=== PATIENT | male | born 1965 | race Caucasian/White ===

== ENCOUNTER 2018-04-09 00:49 | Inpatient (IN) | payer OTHER ==
[~2018-04-09] VITALS: Ht 188 cm; Wt 94.8 kg
[~2018-04-09 00:49] MED LIST: ALPR1TAB6 PO; BETA15CR TP; CYCL10TA2 PO; DIVA500T4 PO; FLUC100T7 PO; GABA-585 PO; GABA-586 PO; HYDR-2766 PO; HYDR-963 PO; LEVE500T56 PO; NITR4.1S2 TL; OXYC80TA16 PO; PHEN100C PO; RANI300C PO; TAMS0.4C97 PO; WARF-31 PO; WARF6TAB49 PO
[2018-04-09] MEDS ORDERED: IPRATRPIUM/ALBUTEROL 0.5/2.5MG 3 ML NEBU. NEB ONE ×2 (02:00)
[2018-04-09 02:31] LABS: BASO % 0 % (0-3); EOS # 0.1 x10^3/uL (0.0-0.7); EOS % 2 % (0-3); HEMOGLOBIN 14.2 g/dL (13.0-17.5); LYMPH # 1.1 x10^3/uL (1.0-4.8); LYMPH % 20 % (24-48); MEAN CORPUSCULAR HEMOGLOBIN 33 pg (25-35); MEAN CORPUSCULAR HGB CONC 35 g/dL (31-37); MEAN CORPUSCULAR VOLUME 97 fL (79-100); MONO # 0.7 x10^3/uL (0.0-1.1); MONO % 13 % (0-9); NEUT # 3.5 x10^3uL (1.8-7.7); NEUT % 65 % (31-73); PLATELET COUNT 206 x10^3/uL (140-400); RED BLOOD COUNT 4.25 x10^6/uL (4.30-5.70); RED CELL DISTRIBUTION WIDTH 15.2 % (11.5-14.5); WHITE BLOOD COUNT 5.4 x10^3/uL (4.0-11.0)
[2018-04-09 02:56] LABS: CALCIUM 9.6 mg/dL (8.5-10.1); GFR 78.8; POTASSIUM 3.5 mmol/L (3.5-5.1)
[2018-04-09 03:01] LABS: ALBUMIN 3.5 g/dL (3.4-5.0); ALBUMIN/GLOBULIN RATIO 0.7 (1.0-1.7); TOTAL BILIRUBIN 0.5 mg/dL (0.2-1.0); TOTAL PROTEIN 8.4 g/dL (6.4-8.2)
--- NOTE | 2018-04-09 03:38 | PHYS DOC ---
Past Medical History Past Medical History: COPD, Seizure, Stroke Additional Past Medical Histor: paralyzed left side, brain mass, hernia Past Surgical History: Appendectomy, Coronary Bypass Surgery Additional Past Surgical Histo: LT BKA Alcohol Use: None Drug Use: Marijuana, Methamphetamine Adult General Chief Complaint Chief Complaint: ALTERED MENTAL STATUS HPI HPI Patient is a 53 year old retirement patient with history of COPD, CVA with left sided paralysis who was found initially unresponsive with sonorous respirations at the side of his bed. Patient was difficulty alert but GCS of 12- 13 according to retirement staff. Patient was found to have packing methamphetamines in his bed according to retirement staff. EMS and police were were contacted. Patient was then transferred to the ED for further evaluation. GCS 15 upon ED arrival. Patient hypoxic, requiring 6 L of oxygen to maintain O2 sat duration greater than 90%. Patient does not normally wear oxygen at baseline. Goals present lower lung melendrez. Patient afebrile and not in obvious respiratory distress. History is limited due to the patient's poor cooperation.[] Review of Systems Review of Systems Review symptoms as per history of present illness. All other review symptoms are negative. Current Medications Current Medications Current Medications Medications (Trade) Dose Ordered Sig/Lyudmila Start Time Stop Time Status Last Admin Dose Admin Albuterol/ Ipratropium (Duoneb) 3 ml 1X ONCE 04/09/18 02:00 04/09/18 02:01 DC Furosemide (Lasix) 40 mg 1X ONCE 04/09/18 04:00 04/09/18 04:01 DC 04/09/18 04:07 40 MG Info (CONTRAST GIVEN -- Rx MONITORING) 1 each PRN DAILY PRN 04/09/18 04:15 04/11/18 04:14 Iohexol (Omnipaque 300 Mg/ml) 75 ml 1X ONCE 04/09/18 04:15 04/09/18 04:16 DC 04/09/18 04:08 75 ML Levofloxacin/ Dextrose 150 ml @ 100 mls/hr 1X ONCE 04/09/18 06:00 04/09/18 07:29 Methylprednisolone Sodium Succinate (SOLU-Medrol 125MG VIAL) 125 mg 1X ONCE 04/09/18 04:00 04/09/18 04:01 DC 04/09/18 04:07 125 MG Ondansetron HCl (Zofran) 4 mg PRN Q8HRS PRN 04/09/18 05:45 04/10/18 05:44 Sodium Chloride 1,000 ml @ 1,000 mls/hr 1X ONCE 04/09/18 06:00 04/09/18 06:59 04/09/18 05:44 1,000 MLS/HR Allergies Allergies Allergies Coded Allergies Type Severity Reaction Last Updated Verified chlorpromazine Allergy Intermediate 12/21/13 No Physical Exam Physical Exam Constitutional: Appears older than stated age. [] HENT: Normocephalic, atraumatic, bilateral external ears normal, oropharynx moist, no oral exudates, nose normal. [] Eyes: PERRLA, EOMI, conjunctiva normal, no discharge. [] Neck: Normal range of motion, no tenderness, supple, no stridor. [] Cardiovascular:Heart rate regular rhythm, no murmur [] Lungs & Thorax: Crease work of breathing, Bilateral breath sounds clear to auscultation [] Abdomen: Bowel sounds normal, soft, no tenderness, no valentin. [] Skin: Warm, dry, no erythema, no rash. [] Back: No tenderness, no CVA tenderness. [] Extremities: No tenderness, no edema. [] Neurologic: Alert and oriented X 3,. Left-sided hemiparesis [] Psychologic: Affe, anxious.al. [] Current Patient Data Vital Signs Vital Signs Date Time Temp Pulse Resp B/P (MAP) Pulse Ox O2 Delivery O2 Flow Rate FiO2 04/09/18 04:59 94 BiPAP/CPAP 04/09/18 04:12 82 18 04/09/18 01:40 4.0 04/09/18 01:09 98.6 121/71 (88) 98.6 Lab Values Laboratory Tests Test 04/09/18 02:00 04/09/18 03:26 White Blood Count 5.4 x10^3/uL (4.0-11.0) Red Blood Count 4.25 x10^6/uL (4.30-5.70) L Hemoglobin 14.2 g/dL (13.0-17.5) Hematocrit 41.0 % (39.0-53.0) Mean Corpuscular Volume 97 fL (79-100) Mean Corpuscular Hemoglobin 33 pg (25-35) Mean Corpuscular Hemoglobin Concent 35 g/dL (31-37) Red Cell Distribution Width 15.2 % (11.5-14.5) H Platelet Count 206 x10^3/uL (140-400) Neutrophils (%) (Auto) 65 % (31-73) Lymphocytes (%) (Auto) 20 % (24-48) L Monocytes (%) (Auto) 13 % (0-9) H Eosinophils (%) (Auto) 2 % (0-3) Basophils (%) (Auto) 0 % (0-3) Neutrophils # (Auto) 3.5 x10^3uL (1.8-7.7) Lymphocytes # (Auto) 1.1 x10^3/uL (1.0-4.8) Monocytes # (Auto) 0.7 x10^3/uL (0.0-1.1) Eosinophils # (Auto) 0.1 x10^3/uL (0.0-0.7) Basophils # (Auto) 0.0 x10^3/uL (0.0-0.2) Sodium Level 142 mmol/L (136-145) Potassium Level 3.5 mmol/L (3.5-5.1) Chloride Level 102 mmol/L (98-107) Carbon Dioxide Level 26 mmol/L (21-32) Anion Gap 14 (6-14) Blood Urea Nitrogen 26 mg/dL (8-26) Creatinine 1.0 mg/dL (0.7-1.3) Estimated GFR (Cockcroft-Gault) 78.8 BUN/Creatinine Ratio 26 (6-20) H Glucose Level 107 mg/dL (70-99) H Lactic Acid Level 1.4 mmol/L (0.4-2.0) Calcium Level 9.6 mg/dL (8.5-10.1) Total Bilirubin 0.5 mg/dL (0.2-1.0) Aspartate Amino Transferase (AST) 37 U/L (15-37) Alanine Aminotransferase (ALT) 24 U/L (16-63) Alkaline Phosphatase 110 U/L (46-116) Troponin I Quantitative 0.787 ng/mL (0.000-0.055) IX-Hug-C-Type Natriuretic Peptide 858 pg/mL (0-124) H Total Protein 8.4 g/dL (6.4-8.2) H Albumin 3.5 g/dL (3.4-5.0) Albumin/Globulin Ratio 0.7 (1.0-1.7) L O2 Saturation 91 % (92-99) L Arterial Blood pH 7.40 (7.35-7.45) Arterial Blood pCO2 at Patient Temp 47 mmHg (35-46) H Arterial Blood pO2 at Patient Temp 63 mmHg (75-108) L Arterial Blood HCO3 29 mmol/L (21-28) H Arterial Blood Base Excess 3 mmol/L (-3-3) FiO2 40 Laboratory Tests 04/09/18 02:00 Laboratory Tests 04/09/18 02:00 EKG EKG [EKG: Sinus rhythm, nonspecific ST-T wave changes, QTC 440.] Radiology/Procedures Radiology/Procedures [CT head: CT a chest:] Course & Med Decision Making Course & Med Decision Making Pertinent Labs and Imaging studies reviewed. (See chart for details) [Acute respiratory failure with hypoxia likely due to congestive heart failure and OPD. Steroids, Lasix, DuoNeb given. Will admit to the hospital service for further evaluation and treatment.] Dragon Disclaimer Dragon Disclaimer This electronic medical record was generated, in whole or in part, using a voice recognition dictation system. Departure Departure Referrals: KAYLYNN BARTLETT (PCP) SADIQ ENCARNACION DO Apr 09, 2018 03:38
[2018-04-09] MEDS ORDERED: FUROSEMIDE 40 MG/4 ML VIAL. IVP ONE (04:00)
[2018-04-09] MEDS ORDERED: methylPREDNISolone SOD SUCC PF 125 MG/2 ML VIAL. IV ONE (04:00)
[2018-04-09] MEDS ORDERED: IOHEXOL 300 MG/ML 100ML VIAL. IV ONE (04:15)
[2018-04-09] MEDS ORDERED: CONTRAST GIVEN. MC PRN (04:15)
--- NOTE | 2018-04-09 04:30 | RAD ---
INDICATION: ams COMPARISON: November 2014 TECHNIQUE: Axial CT images obtained through the head without contrast. One or more of the following individualized dose reduction techniques were utilized for this examination: 1. Automated exposure control; 2. Adjustment of the mA and/or kV according to patient size; 3. Use of iterative reconstruction technique. FINDINGS: Large region of encephalomalacia is seen within the right cerebral hemisphere with associated volume loss. There is surrounding regions of low attenuation throughout the white matter. Ex vacuo dilatation of the right lateral ventricle. No definite new region of hemorrhage. Diffuse volume loss. Opacification of partially visualized maxillary sinuses. Nasal septal deviation to left. IMPRESSION: 1. No definite acute intracranial hemorrhage. 2. Large region of encephalomalacia is again seen within the right cerebral hemisphere and could be from prior right MCA infarct. Given the extensive chronic disease could be difficult to exclude a superimposed acute etiology and if there is high clinical concern for acute ischemia MRI could better evaluate. 3. Opacification of partially visualized maxillary sinuses. Could be from congestion or sinusitis. Electronically signed by: Jigar Pratt MD (04/09/2018 4:26 AM) [id number]
[2018-04-09 05:11] LABS: BASE EXCESS ABG 3 mmol/L (-3-3); HCO3 ABG 29 mmol/L (21-28); PCO2 ABG 47 mmHg (35-46); PO2 ABG 63 mmHg (75-108); SAT O2 ABG 91 % (92-99)
[2018-04-09 05:12] LABS: FIO2 ABG 40
--- NOTE | 2018-04-09 05:22 | RAD ---
INDICATION: ams; eval for pe; Omni 300, 75ml COMPARISON: Chest x-ray from November 2014 TECHNIQUE: Axial CT images obtained through the chest. Intravenous contrast utilized. Angiogram 3D images processed per protocol. One or more of the following individualized dose reduction techniques were utilized for this examination: 1. Automated exposure control; 2. Adjustment of the mA and/or kV according to patient size; 3. Use of iterative reconstruction technique. FINDINGS: Cystic changes to the bilateral lungs which can be seen with emphysematous changes. Severe patient motion. Large bulla at right lung base. Patchy opacities within the bilateral lungs dependently. Lobulated appearance of partially visualized kidneys. There is almost no contrast within the thoracic aorta therefore the lumen is not evaluated on this exam. Artificial aortic valve. Enlarged precarinal lymph node, 14 mm short axis. Degenerative changes throughout the spine. Scoliotic curvature. IMPRESSION: No embolus in the main, right main or left main pulmonary artery. The majority of the pulmonary arteries are nondiagnostic secondary to severe patient motion. Severe emphysematous changes. Patchy opacities are seen within the lungs. Could be infectious or inflammatory in nature although a component of aspiration is not excluded. Would also obtain a follow-up to ensure this resolves to exclude neoplastic causes. The patient has enlarged mediastinal lymph nodes can be followed at that time as well. Lobulated appearance of the kidneys. May be helpful to obtain a nonemergent follow-up to evaluate for renal lesions given this partially otherwise finding. Electronically signed by: Jigar Pratt MD (04/09/2018 5:18 AM) [id number]
[2018-04-09] MEDS ORDERED: ONDANSETRON PF 4 MG/2 ML VIAL. IV PRN ×2 (05:45→09:15)
[2018-04-09] MEDS ORDERED: IV NORMAL SALINE 1000ML BAG 1,000 ML IV ONE (06:00)
[2018-04-09 06:02] LABS: BARBITURATES NEG (NEG); BENZODIAZEPINES NEG (NEG); CANNABINOIDS NEG (NEG); COCAINE NEG (NEG); METHADONE NEG (NEG); OPIATES NEG (NEG); PHENCYCLIDINE NEG (NEG)
[2018-04-09 06:03] LABS: AMPHETAMINE/METHAMPHETAMINE POS (NEG)
--- NOTE | 2018-04-09 06:03 | EKG ---
[facility] [address] [place] [address] Test Date: 2018-04-09 Test Time: 01:38:11 Pat Name: ANALI NEWELL Department: Room: 110 1 Gender: M Bread Distributor: : [id number] Requested By: SADIQ ENCARNACION Order Number: [id number] Reading MD: Caio Barnes MD Measurements Intervals [place] Rate: 90 P: 42 SD: 200 QRS: 10 QRSD: 108 T: 157 QT: 356 QTc: 440 Interpretive Statements SINUS RHYTHM ST & T ABNORMALITY, CONSIDER ANTERIOR ISCHEMIA OR LEFT VENTRICULAR STRAIN Electronically Signed On 04-09-2018 17:42:58 CDT by Caio Barnes MD
[2018-04-09 06:45] VITALS: BP 123/71
[2018-04-09] MEDS ORDERED: WARF4TAB68 PO (07:20)
[2018-04-09] MEDS ORDERED: QUET50TA5 PO (07:24)
[2018-04-09] MEDS ORDERED: AMIT100T PO (07:24)
[2018-04-09] MEDS ORDERED: LACT20SO PO (07:24)
[2018-04-09] MEDS ORDERED: DIVA500T17 PO (07:24)
[2018-04-09] MEDS ORDERED: FLUT12AE IH (07:24)
[2018-04-09] MEDS ORDERED: PHEN100C PO ×2 (07:25)
[2018-04-09] MEDS ORDERED: ACET325T9 PO (07:32)
[2018-04-09] MEDS ORDERED: HYDR-971 PO (07:32)
[2018-04-09] MEDS ORDERED: CLOT15CR3 TP (07:32)
[2018-04-09] MEDS ORDERED: HYDR453.3 TP (07:32)
[2018-04-09] MEDS ORDERED: GUAI600T47 PO (07:32)
[2018-04-09] MEDS ORDERED: ONDA4TAB7 PO (07:32)
[2018-04-09] MEDS ORDERED: PROAIR HFA8.5 GM INH (07:32)
--- NOTE | 2018-04-09 07:56 | RAD ---
Left shoulder, 3 views, 04/09/2018: HISTORY: Trauma The patient positioning is suboptimal. No fracture or dislocation is identified. IMPRESSION: No acute bony abnormality is detected. Electronically signed by: Kumar Whitmore MD (04/09/2018 7:52 AM) [facility]
--- NOTE | 2018-04-09 08:04 | RAD ---
Single view of the chest. 04/09/2018 2:11 AM Indication: cough, ams Comparison: CTA chest, same-day Findings: No pneumothorax or pleural effusion severe diffuse emphysematous changes are noted. Prior median sternotomy noted. Heart size is top normal. No acute osseous changes are seen. IMPRESSION: 1. Severe emphysematous changes 2. Mild bibasilar atelectasis Electronically signed by: Dennis Mercado MD (04/09/2018 8:00 AM) [id number]
[2018-04-09 08:45] VITALS: BP 108/77
[2018-04-09] MEDS ORDERED: MORPHINE SULFATE 2 MG/ML VIAL. IV PRN (09:15)
[2018-04-09] MEDS ORDERED: traMADol 50 MG TABLET PO PRN (09:15)
[2018-04-09] MEDS ORDERED: ACETAMINOPHEN 325 MG TABLET. PO PRN (09:15)
[2018-04-09] MEDS ORDERED: DOCUSATE SODIUM 100 MG CAPSULE. PO PRN (09:15)
[2018-04-09] MEDS ORDERED: ALBUTEROL SULFATE 2.5 MG/3 ML NEBU. NEB PRN (09:15)
--- NOTE | 2018-04-09 09:35 | PDOC2 ---
ASHLY OBREGON TIME STUDY ANALYST 04/09/18 0935: CARDIAC CONSULT DATE OF CONSULT Date of Consult DATE: 04/09/18 TIME: 09:24 REASON FOR CONSULT Reason for Consult: CHF exac REFERRING PHYSICIAN Referring Physician: Manjit SOURCE Source: Chart review (patient provided no information for this consult; no family present) HISTORY OF PRESENT ILLNESS HISTORY OF PRESENT ILLNESS 53 year old [place] resident found to somnolent with snoring respirations by staff. Was also found to have methamphetamines in his room. Police contacted and then patient transported to ER for evaluation. Required O2 during transport due to hypoxia. Currently on bi-pap and declining to answer questions. Initial troponin level was 0.787 and a NT-proBNP of 858. UDS + meth. CT of chest demonstrates severe emphysema. Reason for Visit: NSTEMI PAST MEDICAL HISTORY Cardiovascular: Other (? Marfan syndrome & previous valvular surgery) Pulmonary: COPD (bullous emphysema) CENTRAL NERVOUS SYSTEM: CVA (left hemiparesis), Seizure, Other (brain mass) PAST SURGICAL HISTORY Past Surgical History: Appendectomy, CABG, Hernia Repair, Other (left BKA) FAMILY HISTORY Family History: Family History Unknown SOCIAL HISTORY Drugs: Marijuana, Crystal meth Lives: [facility] CURRENT MEDICATIONS CURRENT MEDICATIONS Current Medications Medications (Trade) Dose Ordered Sig/Lyudmila Route PRN Reason Start Time Stop Time Status Last Admin Dose Admin Albuterol/ Ipratropium (Duoneb) 3 ml 1X ONCE NEB 04/09/18 02:00 04/09/18 02:01 DC 04/09/18 01:43 Furosemide (Lasix) 40 mg 1X ONCE IVP 04/09/18 04:00 04/09/18 04:01 DC 04/09/18 04:07 Methylprednisolone Sodium Succinate (SOLU-Medrol 125MG VIAL) 125 mg 1X ONCE IV 04/09/18 04:00 04/09/18 04:01 DC 04/09/18 04:07 Iohexol (Omnipaque 300 Mg/ml) 75 ml 1X ONCE IV 04/09/18 04:15 04/09/18 04:16 DC 04/09/18 04:08 Sodium Chloride 1,000 ml @ 1,000 mls/hr 1X ONCE IV 04/09/18 06:00 04/09/18 06:59 DC 04/09/18 05:44 Levofloxacin/ Dextrose 150 ml @ 100 mls/hr 1X ONCE IV 04/09/18 06:00 04/09/18 07:29 DC 04/09/18 05:50 ALLERGIES ALLERGIES: Coded Allergies: chlorpromazine (Unverified Allergy, Intermediate, 12/21/13) ROS Review of System unobtainable as patient not cooperative PHYSICAL EXAM General: No acute distress, Other (not cooperative; declines to answer) HEENT: Atraumatic Lungs: Clear to auscultation Heart: Normal S1, Normal S2, Other (mechanical valvular click) Abdomen: Soft Extremities: No edema Skin: No rashes Neuro: Other (can not assess) Psych/Mental Status: Other (??) MUSCULOSKELETAL: Other (left BKA) VITALS VITALS Vital Signs Date Time Temp Pulse Resp B/P (MAP) Pulse Ox O2 Delivery O2 Flow Rate FiO2 04/09/18 08:45 97.7 77 20 108/77 (87) 97 BiPAP/CPAP 97.7 04/09/18 01:40 4.0 LABS Lab: Laboratory Tests Test 04/09/18 02:00 04/09/18 03:26 04/09/18 05:37 04/09/18 08:25 White Blood Count 5.4 x10^3/uL (4.0-11.0) Red Blood Count 4.25 x10^6/uL (4.30-5.70) Hemoglobin 14.2 g/dL (13.0-17.5) Hematocrit 41.0 % (39.0-53.0) Mean Corpuscular Volume 97 fL (79-100) Mean Corpuscular Hemoglobin 33 pg (25-35) Mean Corpuscular Hemoglobin Concent 35 g/dL (31-37) Red Cell Distribution Width 15.2 % (11.5-14.5) Platelet Count 206 x10^3/uL (140-400) Neutrophils (%) (Auto) 65 % (31-73) Lymphocytes (%) (Auto) 20 % (24-48) Monocytes (%) (Auto) 13 % (0-9) Eosinophils (%) (Auto) 2 % (0-3) Basophils (%) (Auto) 0 % (0-3) Neutrophils # (Auto) 3.5 x10^3uL (1.8-7.7) Lymphocytes # (Auto) 1.1 x10^3/uL (1.0-4.8) Monocytes # (Auto) 0.7 x10^3/uL (0.0-1.1) Eosinophils # (Auto) 0.1 x10^3/uL (0.0-0.7) Basophils # (Auto) 0.0 x10^3/uL (0.0-0.2) Sodium Level 142 mmol/L (136-145) Potassium Level 3.5 mmol/L (3.5-5.1) Chloride Level 102 mmol/L (98-107) Carbon Dioxide Level 26 mmol/L (21-32) Anion Gap 14 (6-14) Blood Urea Nitrogen 26 mg/dL (8-26) Creatinine 1.0 mg/dL (0.7-1.3) Estimated GFR (Cockcroft-Gault) 78.8 BUN/Creatinine Ratio 26 (6-20) Glucose Level 107 mg/dL (70-99) Lactic Acid Level 1.4 mmol/L (0.4-2.0) Calcium Level 9.6 mg/dL (8.5-10.1) Total Bilirubin 0.5 mg/dL (0.2-1.0) Aspartate Amino Transf (AST/SGOT) 37 U/L (15-37) Alanine Aminotransferase (ALT/SGPT) 24 U/L (16-63) Alkaline Phosphatase 110 U/L (46-116) Troponin I Quantitative 0.787 ng/mL (0.000-0.055) 0.494 ng/mL (0.000-0.055) CU-Dsd-N-Type Natriuretic Peptide 858 pg/mL (0-124) Total Protein 8.4 g/dL (6.4-8.2) Albumin 3.5 g/dL (3.4-5.0) Albumin/Globulin Ratio 0.7 (1.0-1.7) O2 Saturation 91 % (92-99) Arterial Blood pH 7.40 (7.35-7.45) Arterial Blood pCO2 at Patient Temp 47 mmHg (35-46) Arterial Blood pO2 at Patient Temp 63 mmHg (75-108) Arterial Blood HCO3 29 mmol/L (21-28) Arterial Blood Base Excess 3 mmol/L (-3-3) FiO2 40 Urine Opiates Screen Neg (NEG) Urine Methadone Screen Neg (NEG) Urine Barbiturates Neg (NEG) Urine Phencyclidine Screen Neg (NEG) Urine Amphetamine/Methamphetamine Pos (NEG) Urine Benzodiazepines Screen Neg (NEG) Urine Cocaine Screen Neg (NEG) Urine Cannabinoids Screen Neg (NEG) Urine Ethyl Alcohol Neg (NEG) IMAGES IMAGES 04/09/2018: CT chest: No embolus in the main, right main or left main pulmonary artery. The majority of the pulmonary arteries are nondiagnostic secondary to severe patient motion. Severe emphysematous changes. Patchy opacities are seen within the lungs. Could be infectious or inflammatory in nature although a component of aspiration is not excluded. Would also obtain a follow-up to ensure this resolves to exclude neoplastic causes. The patient has enlarged mediastinal lymph nodes can be followed at that time as well. Lobulated appearance of the kidneys. May be helpful to obtain a nonemergent follow-up to evaluate for renal lesions given this partially otherwise finding. 04/09/2018: CXR: Findings: No pneumothorax or pleural effusion severe diffuse emphysematous changes are noted. Prior median sternotomy noted. Heart size is top normal. No acute osseous changes are seen. IMPRESSION: 1. Severe emphysematous changes 2. Mild bibasilar atelectasis EKG EKG SR; non-specific ST-T changes ASSESSMENT/PLAN ASSESSMENT/PLAN 1. NSTEMI --demand mediated secondary to meth --TTE to evaluate LVEF and assess for WMA; hvac technician subsequently reported he declined echo --current BP does not support BB or ACEI 2. ? history of Marfan's --has mechanical valvular click --? ascending aortic repair with AVR; no details known --on warfarin with subtherapeutic INR 3. CHF --CXR with CHF findings/pleural effusions --NT-proBNP not consistent with CHF when age adjusted --clinical findings do not support CHF 4. acute respiratory failure --on bi-pap --per PULM 5. COPD with severe emphysema 6. mediastinal adenopathy 7. substance abuse PATRICA HA MD 04/09/18 7694: CARDIAC CONSULT ASSESSMENT/PLAN ASSESSMENT/PLAN Pt. seen and examined. Agree with above GRINDER MACHINE SETTER note. complicated patient with multiple issues. no clear STEMI. EKG suggestive of ischemia. Given multiple comorbidities and clear source of NSTEMI, will defer further testing. If after stabilization of resp status he continues to have issues, could then start with echo if patient amenable. Supportive care. Thanks. ASHLY OBREGON APRN Apr 09, 2018 09:35 PATRICA HA MD Apr 09, 2018 17:44
[2018-04-09 09:42] LABS: PROTHROMBIN TIME PATIENT 16.3 SEC (11.7-14.0)
[2018-04-09 10:24] LABS: CHOLESTEROL/HDL RATIO 4.9
--- NOTE | 2018-04-09 11:04 | CONS ---
DATE OF CONSULTATION: PULMONARY CONSULTATION ATTENDING PHYSICIAN: Catia Nolen M.D. REASON FOR CONSULTATION: Hypoxic respiratory failure. HISTORY OF PRESENT ILLNESS: The patient is a 53-year-old male who has history of COPD, history of seizures, stroke and paralysis on the left side. He was brought into the [facility] after he was initially unresponsive with sonorous respirations. His [place] Coma scaling was about 12-13 according to [facility] staff and ER report. The patient was found to have methamphetamines in his urine drug screen. He was evaluated in the Emergency Room and his [place] coma scale was 15 upon arrival. He was hypoxic, requiring 6 liters of oxygen to keep saturation above 90%. The patient does not normally wear oxygen. He underwent imaging study and CTA chest was performed, which was reviewed by me. There were no obvious central pulmonary emboli; however, there was motion artifact. There were some patchy opacities within the lungs, likely inflammatory. There were enlarged mediastinal lymph nodes, with the largest being precarinal at 14 mm. As a result, I have been asked to see him for further evaluation. He was placed on BiPAP. He does respond to commands. He nods yes and no to questions. PAST MEDICAL HISTORY: Significant for history of COPD, seizure, stroke, history of paralysis on the left side, brain mass and hernia. PAST SURGICAL HISTORY: Appendectomy, coronary bypass and left foot surgery. ALLERGIES: CHLORPROMAZINE. MEDICATIONS: Current medications were reviewed as listed in the MRAD, including DuoNebs and Levaquin. REVIEW OF SYSTEMS: System review unable to obtain from the patient. SOCIAL HISTORY: History of tobacco use and substance abuse. PHYSICAL EXAMINATION: VITAL SIGNS: Reviewed. Pulse ox 97% on BiPAP. GENERAL: He responds yes and no to questions. HEENT: Sclerae nonicteric. NECK: Supple. LUNGS: With diminished breath sounds. CARDIOVASCULAR EXAMINATION: With a regular rate. ABDOMEN: Soft and nontender. EXTREMITIES: With left foot amputation. LABORATORY DATA: Labs were reviewed. Urine drug screen positive for amphetamine and meth. BUN and creatinine 26 and 1.0. Lactic acid 1.4. Albumin is 3.5. INR 1.4. White cell count 5.4, hemoglobin 14.2 and platelets are 206,000. IMPRESSION: 1. Acute hypoxic respiratory failure secondary to toxic encephalopathy. Cannot exclude the possibility of aspiration pneumonia. 2. Abnormal CT chest with bilateral mild patchy opacities; could be related to atelectasis versus pneumonia. 3. No evidence of central pulmonary embolism. 4. Methamphetamine overdose resulting in encephalopathy. RECOMMENDATIONS: 1. Continue with BiPAP until he is more awake. 2. He could be later switched to nasal cannula. 3. Substance counseling will be provided to the patient once he is more awake. 4. Continue empiric antibiotics. 5. Bronchodilators as scheduled. 6. He does not need steroids at present. 7. Discussed with RN. We will follow along with you. Total critical care time 30 minutes. AURA HERRERA MD DR: WHIT/kalani JOB#: [id number] / [id number]
[2018-04-09 11:10] VITALS: BP 105/73
[2018-04-09] MEDS ORDERED: PHENYTOIN SODIUM EXTENDED 100 MG CAPSULE PO SCH (12:00)
[2018-04-09] MEDS ORDERED: IPRATRPIUM/ALBUTEROL 0.5/2.5MG 3 ML NEBU. NEB SCH (12:00)
[2018-04-09] MEDS ORDERED: levETIRAcetam 500 MG TABLET PO SCH (12:00)
[2018-04-09] MEDS ORDERED: DIVALPROEX EXTENDED RELEASE 500 MG TAB.ER.24H. PO SCH (12:00)
--- NOTE | 2018-04-09 12:39 | PDOC1 ---
History and Physical Date of Admission Date of Admission 04/09/18 Identification/Chief Complaint Chief Complaint AMS Source Source: Chart review History of Present Illness History of Present Illness HPI Patient is a 53 year old shelter patient with history of COPD, CVA with left sided paralysis was sent from SNF for AMS, taking meth. pt seen in ICU with bipap, arousable, follow commands, but not really answer my questions. as per ICU nurse and ERP, pt was found initially unresponsive with sonorous respirations at the side of his bed. Patient was difficulty alert but GCS of 12- 13 according to shelter staff. Patient was found to have packing methamphetamines in his bed according to shelter staff. EMS and police were were contacted. ICU nurse said they told pt need to go to correction or hosp since taking meth and pt wanted hosp. as per ERP, GCS 15 upon ED arrival. Patient hypoxic, requiring 6 L of oxygen to maintain O2 sat duration greater than 90%. Patient does not normally wear oxygen at baseline. Pt was put on BIpap and sent to ICU. pt denies sob to me now. Past Medical History Cardiovascular: Other (? Marfan syndrome & previous valvular surgery) Pulmonary: COPD (bullous emphysema) CENTRAL NERVOUS SYSTEM: CVA (left hemiparesis), Seizure, Other (brain mass) Past Surgical History Past Surgical History: Appendectomy, CABG, Other (left BKA) Social History Smoke: No ALCOHOL: rare Drugs: Marijuana, Crystal meth Current Problem List Problem List Problems Medical Problems: (1) Acute respiratory failure with hypoxia Status: Acute Current Medications Current Medications Current Medications Medications (Trade) Dose Ordered Sig/Lyudmila Start Time Stop Time Status Last Admin Dose Admin Acetaminophen (Tylenol) 650 mg PRN Q6HRS PRN 04/09/18 09:15 Albuterol Sulfate (Ventolin Neb Soln) 2.5 mg PRN Q2HR PRN 04/09/18 09:15 Albuterol/ Ipratropium (Duoneb) 3 ml RTQID 04/09/18 12:00 Divalproex Sodium (Depakote Er) 500 mg BID 04/09/18 12:00 04/09/18 12:06 500 MG Docusate Sodium (Colace) 100 mg PRN DAILY PRN 04/09/18 09:15 Furosemide (Lasix) 40 mg 1X ONCE 04/09/18 04:00 04/09/18 04:01 DC 04/09/18 04:07 40 MG Gabapentin (Neurontin) 300 mg TID 04/09/18 14:00 Guaifenesin (Mucinex) 600 mg BID 04/09/18 10:00 04/09/18 11:59 600 MG Info (CONTRAST GIVEN -- Rx MONITORING) 1 each PRN DAILY PRN 04/09/18 04:15 04/11/18 04:14 Iohexol (Omnipaque 300 Mg/ml) 75 ml 1X ONCE 04/09/18 04:15 04/09/18 04:16 DC 04/09/18 04:08 75 ML Levetiracetam (Keppra) 500 mg BID 04/09/18 12:00 04/09/18 12:00 500 MG Levofloxacin/ Dextrose 100 ml @ 100 mls/hr Q24H 04/09/18 11:00 Methylprednisolone Sodium Succinate (SOLU-Medrol 125MG VIAL) 125 mg 1X ONCE 04/09/18 04:00 04/09/18 04:01 DC 04/09/18 04:07 125 MG Morphine Sulfate (Morphine Sulfate) 2 mg PRN Q2HR PRN 04/09/18 09:15 Ondansetron HCl (Zofran) 4 mg PRN Q6HRS PRN 04/09/18 09:15 Phenytoin Sodium (Dilantin) 200 mg DAILY08 04/09/18 12:00 04/09/18 11:59 200 MG Sodium Chloride 1,000 ml @ 1,000 mls/hr 1X ONCE 04/09/18 06:00 04/09/18 06:59 DC 04/09/18 05:44 1,000 MLS/HR Tramadol HCl (Ultram) 50 mg PRN Q6HRS PRN 04/09/18 09:15 Allergies Allergies Allergies Coded Allergies Type Severity Reaction Last Updated Verified chlorpromazine Allergy Intermediate 12/21/13 No ROS Review of System CONSTITUTIONAL: No fever or chills EYES: No recent changes SKIN: No rash or itching CARDIOVASCULAR: No chest pain, syncope, palpitations, or edema RESPIRATORY: No SOB or cough GASTROINTESTINAL: No nausea, vomiting or abdominal pain NEUROLOGICAL: No headaches or weakness ENDOCRINE: No cold or heat intolerance GENITOURINARY: No urgency or frequency of urination MUSCULOSKELETAL: No back pain or joint pain LYMPHATICS: No enlarged lymph nodes PSYCHIATRIC: No anxiety or depression Physical Exam Physical Exam GEN.: No apparent distress. Alert and oriented. HEENT: Head is normocephalic, atraumatic NECK: Supple. LUNGS: Clear to auscultation. HEART: RRR, S1, S2 present. Peripheral pulses intact ABDOMEN: Soft, nontender. Positive bowel sounds. EXTREMITIES: Without any cyanosis. NEUROLOGIC: arousable, follow commands, but not talking to me. left side hemiplegia. PSYCHIATRIC: Normal affect, normal mood. SKIN: No ulcerations Vitals Vitals Vital Signs Date Time Temp Pulse Resp B/P (MAP) Pulse Ox O2 Delivery O2 Flow Rate FiO2 04/09/18 11:10 72 16 105/73 (84) 92 Room Air 04/09/18 08:45 97.7 97.7 04/09/18 01:40 4.0 Labs Labs Laboratory Tests Test 04/09/18 02:00 04/09/18 03:26 04/09/18 05:37 04/09/18 08:25 White Blood Count 5.4 x10^3/uL (4.0-11.0) Red Blood Count 4.25 x10^6/uL (4.30-5.70) Hemoglobin 14.2 g/dL (13.0-17.5) Hematocrit 41.0 % (39.0-53.0) Mean Corpuscular Volume 97 fL (79-100) Mean Corpuscular Hemoglobin 33 pg (25-35) Mean Corpuscular Hemoglobin Concent 35 g/dL (31-37) Red Cell Distribution Width 15.2 % (11.5-14.5) Platelet Count 206 x10^3/uL (140-400) Neutrophils (%) (Auto) 65 % (31-73) Lymphocytes (%) (Auto) 20 % (24-48) Monocytes (%) (Auto) 13 % (0-9) Eosinophils (%) (Auto) 2 % (0-3) Basophils (%) (Auto) 0 % (0-3) Neutrophils # (Auto) 3.5 x10^3uL (1.8-7.7) Lymphocytes # (Auto) 1.1 x10^3/uL (1.0-4.8) Monocytes # (Auto) 0.7 x10^3/uL (0.0-1.1) Eosinophils # (Auto) 0.1 x10^3/uL (0.0-0.7) Basophils # (Auto) 0.0 x10^3/uL (0.0-0.2) Sodium Level 142 mmol/L (136-145) Potassium Level 3.5 mmol/L (3.5-5.1) Chloride Level 102 mmol/L (98-107) Carbon Dioxide Level 26 mmol/L (21-32) Anion Gap 14 (6-14) Blood Urea Nitrogen 26 mg/dL (8-26) Creatinine 1.0 mg/dL (0.7-1.3) Estimated GFR (Cockcroft-Gault) 78.8 BUN/Creatinine Ratio 26 (6-20) Glucose Level 107 mg/dL (70-99) Lactic Acid Level 1.4 mmol/L (0.4-2.0) Calcium Level 9.6 mg/dL (8.5-10.1) Total Bilirubin 0.5 mg/dL (0.2-1.0) Aspartate Amino Transf (AST/SGOT) 37 U/L (15-37) Alanine Aminotransferase (ALT/SGPT) 24 U/L (16-63) Alkaline Phosphatase 110 U/L (46-116) Troponin I Quantitative 0.787 ng/mL (0.000-0.055) 0.494 ng/mL (0.000-0.055) KK-Bgr-X-Type Natriuretic Peptide 858 pg/mL (0-124) Total Protein 8.4 g/dL (6.4-8.2) Albumin 3.5 g/dL (3.4-5.0) Albumin/Globulin Ratio 0.7 (1.0-1.7) Triglycerides Level 142 mg/dL (0-150) Cholesterol Level 176 mg/dL (0-200) LDL Cholesterol, Calculated 112 mg/dL (0-100) VLDL Cholesterol, Calculated 28 mg/dL (0-40) Non-HDL Cholesterol Calculated 140 mg/dL (0-129) HDL Cholesterol 36 mg/dL (40-60) Cholesterol/HDL Ratio 4.9 O2 Saturation 91 % (92-99) Arterial Blood pH 7.40 (7.35-7.45) Arterial Blood pCO2 at Patient Temp 47 mmHg (35-46) Arterial Blood pO2 at Patient Temp 63 mmHg (75-108) Arterial Blood HCO3 29 mmol/L (21-28) Arterial Blood Base Excess 3 mmol/L (-3-3) FiO2 40 Urine Opiates Screen Neg (NEG) Urine Methadone Screen Neg (NEG) Urine Barbiturates Neg (NEG) Urine Phencyclidine Screen Neg (NEG) Urine Amphetamine/Methamphetamine Pos (NEG) Urine Benzodiazepines Screen Neg (NEG) Urine Cocaine Screen Neg (NEG) Urine Cannabinoids Screen Neg (NEG) Urine Ethyl Alcohol Neg (NEG) Prothrombin Time 16.3 SEC (11.7-14.0) Prothromb Time International Ratio 1.4 (0.8-1.1) Test 04/09/18 11:40 Troponin I Quantitative 0.380 ng/mL (0.000-0.055) Laboratory Tests Test 04/09/18 02:00 04/09/18 03:26 04/09/18 05:37 04/09/18 08:25 White Blood Count 5.4 x10^3/uL (4.0-11.0) Red Blood Count 4.25 x10^6/uL (4.30-5.70) Hemoglobin 14.2 g/dL (13.0-17.5) Hematocrit 41.0 % (39.0-53.0) Mean Corpuscular Volume 97 fL (79-100) Mean Corpuscular Hemoglobin 33 pg (25-35) Mean Corpuscular Hemoglobin Concent 35 g/dL (31-37) Red Cell Distribution Width 15.2 % (11.5-14.5) Platelet Count 206 x10^3/uL (140-400) Neutrophils (%) (Auto) 65 % (31-73) Lymphocytes (%) (Auto) 20 % (24-48) Monocytes (%) (Auto) 13 % (0-9) Eosinophils (%) (Auto) 2 % (0-3) Basophils (%) (Auto) 0 % (0-3) Neutrophils # (Auto) 3.5 x10^3uL (1.8-7.7) Lymphocytes # (Auto) 1.1 x10^3/uL (1.0-4.8) Monocytes # (Auto) 0.7 x10^3/uL (0.0-1.1) Eosinophils # (Auto) 0.1 x10^3/uL (0.0-0.7) Basophils # (Auto) 0.0 x10^3/uL (0.0-0.2) Sodium Level 142 mmol/L (136-145) Potassium Level 3.5 mmol/L (3.5-5.1) Chloride Level 102 mmol/L (98-107) Carbon Dioxide Level 26 mmol/L (21-32) Anion Gap 14 (6-14) Blood Urea Nitrogen 26 mg/dL (8-26) Creatinine 1.0 mg/dL (0.7-1.3) Estimated GFR (Cockcroft-Gault) 78.8 BUN/Creatinine Ratio 26 (6-20) Glucose Level 107 mg/dL (70-99) Lactic Acid Level 1.4 mmol/L (0.4-2.0) Calcium Level 9.6 mg/dL (8.5-10.1) Total Bilirubin 0.5 mg/dL (0.2-1.0) Aspartate Amino Transf (AST/SGOT) 37 U/L (15-37) Alanine Aminotransferase (ALT/SGPT) 24 U/L (16-63) Alkaline Phosphatase 110 U/L (46-116) Troponin I Quantitative 0.787 ng/mL (0.000-0.055) 0.494 ng/mL (0.000-0.055) IA-Mtn-C-Type Natriuretic Peptide 858 pg/mL (0-124) Total Protein 8.4 g/dL (6.4-8.2) Albumin 3.5 g/dL (3.4-5.0) Albumin/Globulin Ratio 0.7 (1.0-1.7) Triglycerides Level 142 mg/dL (0-150) Cholesterol Level 176 mg/dL (0-200) LDL Cholesterol, Calculated 112 mg/dL (0-100) VLDL Cholesterol, Calculated 28 mg/dL (0-40) Non-HDL Cholesterol Calculated 140 mg/dL (0-129) HDL Cholesterol 36 mg/dL (40-60) Cholesterol/HDL Ratio 4.9 O2 Saturation 91 % (92-99) Arterial Blood pH 7.40 (7.35-7.45) Arterial Blood pCO2 at Patient Temp 47 mmHg (35-46) Arterial Blood pO2 at Patient Temp 63 mmHg (75-108) Arterial Blood HCO3 29 mmol/L (21-28) Arterial Blood Base Excess 3 mmol/L (-3-3) FiO2 40 Urine Opiates Screen Neg (NEG) Urine Methadone Screen Neg (NEG) Urine Barbiturates Neg (NEG) Urine Phencyclidine Screen Neg (NEG) Urine Amphetamine/Methamphetamine Pos (NEG) Urine Benzodiazepines Screen Neg (NEG) Urine Cocaine Screen Neg (NEG) Urine Cannabinoids Screen Neg (NEG) Urine Ethyl Alcohol Neg (NEG) Prothrombin Time 16.3 SEC (11.7-14.0) Prothromb Time International Ratio 1.4 (0.8-1.1) Test 04/09/18 11:40 Troponin I Quantitative 0.380 ng/mL (0.000-0.055) VTE Prophylaxis Ordered VTE Prophylaxis Devices: Yes VTE Pharmacological Prophylaxi: Yes Assessment/Plan Assessment/Plan AMS, metabolic encephalopathy with meth, hypoxia acute hypoxic and hypercapnic resp failure copd exacerbation h/o stroke with left side hemiplegia h/o seizure h/o CAD WITH CABG drug abuse with marijuana, meth elevated trop possible CHF warfarin with possible valve replacement plan: pulm, card consult check echo taper bipap when pt is more awake. check inr, cont warfarin cont duoneb. however, ICU nurse paged me later saying pt is more awake, on NC and no sob, request to go back to SNF, signed AMA. KEISHA ALEGRIA MD Apr 09, 2018 12:39
[2018-04-09] MEDS ORDERED: GABAPENTIN 300 MG CAPSULE. PO SCH (14:00)
== END 2018-04-09 12:30 | disposition left against medical advice (07) | DRG 917 ==
LOC: ER 00:49 → 1 WEST ICU 05:51
PROVIDERS: ADMIT Internal Medicine; ATTEND Internal Medicine
PROC: 5A09357 Assistance with Respiratory Ventilation, Less than 24 Consecutive Hours, Continuous Positive Airway Pressure (ICD-10-PCS; principal; 2018-04-09)
DX: T43.621A Poisoning by amphetamines, accidental (unintentional), initial encounter (principal); G92 Toxic encephalopathy; J96.01 Acute respiratory failure with hypoxia; J96.02 Acute respiratory failure with hypercapnia; J69.0 Pneumonitis due to inhalation of food and vomit; I21.A1 Myocardial infarction type 2; I69.354 Hemiplegia and hemiparesis following cerebral infarction affecting left non-dominant side; J98.11 Atelectasis; J44.1 Chronic obstructive pulmonary disease with (acute) exacerbation; J43.9 Emphysema, unspecified; F12.10 Cannabis abuse, uncomplicated; I50.9 Heart failure, unspecified; F15.10 Other stimulant abuse, uncomplicated; I25.10 Atherosclerotic heart disease of native coronary artery without angina pectoris; Z53.21 Procedure and treatment not carried out due to patient leaving prior to being seen by health care provider; Z90.49 Acquired absence of other specified parts of digestive tract; Z95.1 Presence of aortocoronary bypass graft; Z89.512 Acquired absence of left leg below knee; Z88.8 Allergy status to other drugs, medicaments and biological substances; Y92.89 Other specified places as the place of occurrence of the external cause; Z87.891 Personal history of nicotine dependence
CPT/HCPCS: 36415; 36600; 70450; 71045; 71275; 73030; 80053; 80061; 80307; 82805; 83605; 83880; 84484; 85025; 85610; 87641; 93005; 94640; 94660; J1940; J1956; J2930; J7030; J7620; Q9967; G0479

== ENCOUNTER 2018-11-27 01:32 | Inpatient (IN) | payer OTHER ==
[~2018-11-27] VITALS: Ht 190.5 cm; Wt 112.0 kg
[~2018-11-27 01:32] MED LIST changes: +ACET325T9 PO; +ALBU2.5V8 INH; +AMIT100T PO; +CLOT15CR3 TP; +DIVA500T17 PO; +FLUT12AE IH; -GABA-586 PO; +GABA300C18 PO; +GUAI600T47 PO; -HYDR-2766 PO; +HYDR-2769 PO; +HYDR-3135 PO; +HYDR-3164 PO; -HYDR-963 PO; +HYDR453.3 TP; +LACT20SO PO; +ONDA4TAB7 PO; +QUET50TA5 PO; +WARF4TAB68 PO
[2018-11-27] MEDS ORDERED: IPRATRPIUM/ALBUTEROL 0.5/2.5MG 3 ML NEBU. NEB ONE (02:00)
[2018-11-27] MEDS ORDERED: IV NORMAL SALINE 1000ML BAG 1,000 ML IV SCH (02:00)
--- NOTE | 2018-11-27 02:03 | RAD ---
AP chest. HISTORY: Dyspnea, COPD AP view was taken of the chest. Patient had previous bypass. Patient rotated to the left. There is atelectasis or infiltrate in the medial aspect of both lung bases. PA and lateral views would be of benefit. There are emphysematous changes. IMPRESSION: 1. COPD. 2. Atelectasis or infiltrate in the medial aspect of both lung bases. Electronically signed by: Darin Hyman MD (11/27/2018 2:00 AM) [facility]
[2018-11-27 02:38] LABS: BASO # 0.1 x10^3/uL (0.0-0.2); BASO % 1 % (0-3); EOS # 0.2 x10^3/uL (0.0-0.7); EOS % 3 % (0-3); HEMATOCRIT 38.2 % (39.0-53.0); HEMOGLOBIN 12.8 g/dL (13.0-17.5); LYMPH # 1.2 x10^3/uL (1.0-4.8); LYMPH % 15 % (24-48); MEAN CORPUSCULAR HEMOGLOBIN 32 pg (25-35); MEAN CORPUSCULAR HGB CONC 34 g/dL (31-37); MEAN CORPUSCULAR VOLUME 96 fL (79-100); MONO # 0.5 x10^3/uL (0.0-1.1); MONO % 7 % (0-9); NEUT # 6.1 x10^3uL (1.8-7.7); NEUT % 75 % (31-73); PLATELET COUNT 143 x10^3/uL (140-400); RED BLOOD COUNT 3.98 x10^6/uL (4.30-5.70); RED CELL DISTRIBUTION WIDTH 16.5 % (11.5-14.5); WHITE BLOOD COUNT 8.2 x10^3/uL (4.0-11.0)
[2018-11-27] MEDS ORDERED: PIPERACILLIN/TAZOBACTAM 3.375 GM in IV NORMAL SALINE 50ML 50 ML IV ONE (03:30)
[2018-11-27] MEDS ORDERED: VANCOMYCIN 1GM IVPB FOR OMNI 250 ML IV ONE (03:30)
[2018-11-27 03:48] LABS: BILIRUBIN,URINE NEGATIVE (NEG); CLARITY,URINE CLEAR; COLOR,URINE YELLOW; NITRITE,URINE NEGATIVE (NEG); PH,URINE 6.5; PROTEIN,URINE NEGATIVE (NEG-TRACE)
--- NOTE | 2018-11-27 03:51 | PHYS DOC ---
Past Medical History Past Medical History: COPD, Seizure, Stroke Additional Past Medical Histor: paralyzed left side, brain mass, hernia, valve replacement Past Surgical History: Appendectomy, Coronary Bypass Surgery Additional Past Surgical Histo: LT BKA Alcohol Use: None Drug Use: Marijuana, Methamphetamine Adult General Chief Complaint Chief Complaint: SHORTNESS OF BREATH HPI HPI Patient is a 53-year-old male who presents with complaint of cough and shortness of breath that he states is been going on since yesterday. Patient states that symptoms have progressively gotten worse through the night and states that now he is feeling very short of breath. He indicates he has a very coarse cough and is afraid that he has pneumonia. EMS reports that patient was noted to have temperature of 101.9 with their testing. Patient does complain of burning pain in his chest when he coughs. He denies any abdominal pain, nausea or vomiting. Patient states that shortness of breath is much worse when he tries to move around even on his bed. Review of Systems Review of Systems Constitutional: Positive fever and chills [] Respiratory: Complains of cough and shortness of breath [] Cardiovascular: No additional information not addressed in HPI [] GI: Denies abdominal pain, nausea, vomiting or diarrhea [] Musculoskeletal: Complains of body aches/pain [] Integument: Denies rash or skin lesions [] All other systems were reviewed and found to be within normal limits, except as documented in this note. Current Medications Current Medications Current Medications Medications (Trade) Dose Ordered Sig/Lyudmila Start Time Stop Time Status Last Admin Dose Admin Acetaminophen (Tylenol) 650 mg PRN Q4HRS PRN 11/27/18 04:00 11/28/18 03:59 Albuterol/ Ipratropium (Duoneb) 3 ml RTQID 11/27/18 08:00 11/28/18 07:59 Ondansetron HCl (Zofran) 4 mg PRN Q8HRS PRN 11/27/18 04:00 11/28/18 03:59 Piperacillin Sod/ Tazobactam Sod 3.375 gm/Sodium Chloride 50 ml @ 100 mls/hr 1X ONCE 11/27/18 03:30 11/27/18 03:59 DC 11/27/18 03:38 100 MLS/HR Sodium Chloride 1,000 ml @ 125 mls/hr Q8H 11/27/18 04:30 11/28/18 04:29 Vancomycin HCl (Vanco Per Pharmacy) 1 each PRN DAILY PRN 11/27/18 03:30 Vancomycin HCl 2 gm/Sodium Chloride 500 ml @ 250 mls/hr 1X ONCE 11/27/18 04:00 11/27/18 05:59 Allergies Allergies Allergies Coded Allergies Type Severity Reaction Last Updated Verified chlorpromazine Allergy Intermediate 12/21/13 No Physical Exam Physical Exam Constitutional: Well developed, well nourished, no acute distress, non-toxic appearance. [] HENT: Normocephalic, atraumatic, bilateral external ears normal, oropharynx moist, no oral exudates, nose normal. [] Eyes: PERRLA, EOMI, conjunctiva normal, no discharge. [] Neck: Normal range of motion, no tenderness, supple, no stridor. [] Cardiovascular: Tachycardic rate with regular rhythm[] Lungs & Thorax: Coarse rhonchi are noted in the lung bases, left greater than right to auscultation [] Abdomen: Bowel sounds normal, soft, no tenderness. [] Skin: Warm, dry, no erythema, no rash. [] Extremities: No tenderness, no cyanosis, no clubbing, there is a left-sided AKA. [] Neurologic: Alert and oriented X 3, no focal deficits noted. [] Current Patient Data Vital Signs Vital Signs Date Time Temp Pulse Resp B/P (MAP) Pulse Ox O2 Delivery O2 Flow Rate FiO2 11/27/18 01:52 92 Nasal Cannula 10.0 11/27/18 01:32 99.9 116 26 144/89 (107) 99.9 Lab Values Laboratory Tests Test 11/27/18 02:25 11/27/18 02:37 White Blood Count 8.2 x10^3/uL (4.0-11.0) Red Blood Count 3.98 x10^6/uL (4.30-5.70) L Hemoglobin 12.8 g/dL (13.0-17.5) L Hematocrit 38.2 % (39.0-53.0) L Mean Corpuscular Volume 96 fL (79-100) Mean Corpuscular Hemoglobin 32 pg (25-35) Mean Corpuscular Hemoglobin Concent 34 g/dL (31-37) Red Cell Distribution Width 16.5 % (11.5-14.5) H Platelet Count 143 x10^3/uL (140-400) Neutrophils (%) (Auto) 75 % (31-73) H Lymphocytes (%) (Auto) 15 % (24-48) L Monocytes (%) (Auto) 7 % (0-9) Eosinophils (%) (Auto) 3 % (0-3) Basophils (%) (Auto) 1 % (0-3) Neutrophils # (Auto) 6.1 x10^3uL (1.8-7.7) Lymphocytes # (Auto) 1.2 x10^3/uL (1.0-4.8) Monocytes # (Auto) 0.5 x10^3/uL (0.0-1.1) Eosinophils # (Auto) 0.2 x10^3/uL (0.0-0.7) Basophils # (Auto) 0.1 x10^3/uL (0.0-0.2) Lactic Acid Level 2.6 mmol/L (0.4-2.0) H Urine Collection Type Unknown Urine Color Yellow Urine Clarity Clear Urine pH 6.5 Urine Specific [place] 1.025 Urine Protein Negative mg/dL (NEG-TRACE) Urine Glucose (UA) Negative mg/dL (NEG) Urine Ketones (Stick) Negative mg/dL (NEG) Urine Blood Negative (NEG) Urine Nitrite Negative (NEG) Urine Bilirubin Negative (NEG) Urine Urobilinogen Dipstick 1.0 mg/dL (0.2 mg/dL) Urine Leukocyte Esterase Negative (NEG) Urine RBC 6-10 /HPF (0-2) Urine WBC 0 /HPF (0-4) Urine Squamous Epithelial Cells Few /LPF Urine Bacteria 0 /HPF (0-FEW) Urine Mucus Mod /LPF Laboratory Tests 11/27/18 02:25 EKG EKG [] Interpretation Time: EKG demonstrates sinus tachycardia with rate of 118. Radiology/Procedures Radiology/Procedures [] Impressions: PROCEDURE: PORTABLE CHEST 1V AP chest. HISTORY: Dyspnea, COPD AP view was taken of the chest. Patient had previous bypass. Patient rotated to the left. There is atelectasis or infiltrate in the medial aspect of both lung bases. PA and lateral views would be of benefit. There are emphysematous changes. IMPRESSION: 1. COPD. 2. Atelectasis or infiltrate in the medial aspect of both lung bases. Electronically signed by: Darin Hyman MD (11/27/2018 2:00 AM) [facility] Course & Med Decision Making Course & Med Decision Making Pertinent Labs and Imaging studies reviewed. (See chart for details) Dragon Disclaimer Dragon Disclaimer This electronic medical record was generated, in whole or in part, using a voice recognition dictation system. Departure Departure Impression: Primary Impression: Facility-acquired pneumonia Disposition: ADMITTED INPATIENT Admitting Physician: Other Condition: IMPROVED Referrals: KAYLYNN BARTLETT (PCP) MODESTO DEUTSCH Jr. DO November 27, 2018 03:51
[2018-11-27] MEDS ORDERED: ONDANSETRON PF 4 MG/2 ML VIAL. IV PRN ×2 (04:00→09:15)
[2018-11-27] MEDS ORDERED: VANCOMYCIN 2 GM in IV NORMAL SALINE 500ML BAG 500 ML IV ONE (04:00)
[2018-11-27] MEDS ORDERED: ACETAMINOPHEN 325 MG TABLET. PO PRN (04:00)
[2018-11-27 04:01] LABS: SQUAMOUS EPITHELIAL CELL,UR FEW /LPF
[2018-11-27 04:03] LABS: BACTERIA,URINE 0 /HPF (0-FEW); WBC,URINE 0 /HPF (0-4)
[2018-11-27 04:11] LABS: CALCIUM 8.1 mg/dL (8.5-10.1); CREATININE 0.8 mg/dL (0.7-1.3); GFR 101.9; POTASSIUM 3.8 mmol/L (3.5-5.1)
[2018-11-27 04:19] LABS: ALBUMIN/GLOBULIN RATIO 0.9 (1.0-1.7); TOTAL BILIRUBIN 0.2 mg/dL (0.2-1.0); TOTAL PROTEIN 6.5 g/dL (6.4-8.2)
[2018-11-27 04:50] VITALS: BP 114/74
[2018-11-27] MEDS: VANCOMYCIN PER PHARMACY MC PRN ×2 (05:31→14:05)
--- NOTE | 2018-11-27 05:31 | NUR ---
Pharmacy Vancomycin Dosing Note S:Consulted to monitor and dose vancomycin started 11/27/18. O:DECEMBER,ANALI Correa is a 53 year old M with HCAP . Height: 6 feet, 3 inches Weight: 99.358274 kg [place] Body Weight: 84.50 Adjusted Body Weight: 90.62 Dosing Weight: Actual Other Antibiotics: LABS: Last BUN: 20 Last Creatinine: 0.8 Creatinine Clearance: 140 mL/min Last WBC: 8.2 Last Procalcitonin: Tmax (past 24 hours): Microbiology: I/O: Drug Levels: Last level: on at Last dose given 11/27/18 at 0400 Vancomycin Dosing: Loading Dose: 2000 mg x1 Dosing Weight: Actual Target Trough: 15-20 A: Based on: WT AND CRCL P: 1. Begin Vancomycin 1500 mg IV q8h 2. Follow up Trough level on 11/28/18 at 0330 3. Pharmacy will continue to monitor, follow and adjust therapy as needed. NICOLE PARHAM RPH, 11/27/18 0532 Signed: 11/27/18 at 0532 by NICOLE PARHAM RPH PHA
--- NOTE | 2018-11-27 06:07 | NUR ---
Pt admitted to room this am. Pt being very rude refusing this nurse to assess him. Pt informed of protocol of MRSA since pt from a facility. However pt continues to state I know my rights and you not sticking nothing up my nose. Pt informed of this nurse not having to do procedure however he will be placed in isolation as protocol. Started padding pt's siderails since pt states having seizure 2 days ago. Pt also states you a starting to get on my nerves since this nurse padding his siderails. Pt informed that it was for his safety. Pt states he is not a morning person and did not get any sleep. Pt informed that it will only take a few minutes and this nurse will leave the room. Pt informed of plan of care however refusing to comply. No evidence of learning noted.
[2018-11-27] MEDS: IV NORMAL SALINE 1000ML BAG 1,000 ML IV SCH ×3 (06:27→20:14)
--- NOTE | 2018-11-27 06:51 | EKG ---
[facility] [address] [place] [address] Test Date: 2018-11-27 Test Time: 02:04:57 Pat Name: ANALI NEWELL Department: Room: Gender: M Website Programmer: : [id number] Requested By: MODESTO DEUTSCH Order Number: [id number] Reading MD: Measurements Intervals [place] Rate: 118 P: -138 MO: 114 QRS: -22 QRSD: 92 T: 97 QT: 314 QTc: 442 Interpretive Statements SUPRAVENTRICULAR RHYTHM LEFTWARD AXIS CONSIDER LEFT VENTRICULAR HYPERTROPHY ST & T ABNORMALITY, CONSIDER ANTEROLATERAL ISCHEMIA OR LEFT VENTRICULAR STRAIN T ABNORMALITY IN ANTERIOR LEADS ABNORMAL ECG RI6.01 No previous ECG available for comparison
[2018-11-27 07:15] VITALS: BP 120/71
[2018-11-27] MEDS ORDERED: CLON0.5T11 PO ×2 (07:48→09:46)
[2018-11-27] MEDS ORDERED: LEVO25TA4 PO (07:48)
[2018-11-27] MEDS ORDERED: WARF3TAB50 PO (07:48)
[2018-11-27] MEDS ORDERED: PRED5TAB PO (07:48)
[2018-11-27] MEDS ORDERED: MELA1TAB11 PO (07:48)
[2018-11-27] MEDS ORDERED: BISA5TAB4 PO (07:48)
[2018-11-27] MEDS ORDERED: CALC500T31 PO (07:48)
[2018-11-27] MEDS ORDERED: IPRA3AMP29 NEB (07:48)
[2018-11-27] MEDS ORDERED: POLY17PO28 PO (07:48)
[2018-11-27] MEDS ORDERED: ACET325T9 PO (07:48)
[2018-11-27] MEDS ORDERED: DOCU100C28 PO (07:48)
[2018-11-27] MEDS ORDERED: OXYC1TAB19 PO (07:48)
[2018-11-27] MEDS ORDERED: IPRATRPIUM/ALBUTEROL 0.5/2.5MG 3 ML NEBU. NEB SCH (08:00)
[2018-11-27] MEDS ORDERED: BISACODYL 5 MG TABLET.DR. PO PRN (09:15)
[2018-11-27] MEDS ORDERED: guaiFENesin DM 200MG/20MG 10 ML SYRUP PO PRN (09:15)
[2018-11-27] MEDS ORDERED: ALBUTEROL SULFATE 2.5 MG/3 ML NEBU. INH PRN (09:15)
[2018-11-27] MEDS ORDERED: HYDROcodone/APAP 5/325MG 1 TAB TABLET PO PRN (09:15)
[2018-11-27] MEDS ORDERED: clonazePAM 0.5 MG TABLET PO PRN (09:15)
[2018-11-27] MEDS ORDERED: ONDANSETRON ODT 4 MG TAB.RAPDIS. PO PRN (09:15)
[2018-11-27] MEDS ORDERED: DOCUSATE SODIUM 100 MG CAPSULE. PO PRN (09:15)
[2018-11-27] MEDS ORDERED: MELA3TAB2 PO (09:46)
[2018-11-27] MEDS: LEVOTHYROXINE 25 MCG TABLET. PO SCH (09:47)
[2018-11-27] MEDS: TAMSULOSIN 0.4 MG CAP.ER.24H. PO SCH (09:47)
[2018-11-27] MEDS: PHENYTOIN SODIUM EXTENDED 100 MG CAPSULE PO SCH (09:48)
[2018-11-27] MEDS: DIVALPROEX EXTENDED RELEASE 500 MG TAB.ER.24H. PO SCH ×2 (09:48→20:12)
[2018-11-27] MEDS: QUEtiapine 100 MG TABLET. PO SCH ×3 (09:48→20:12)
[2018-11-27] MEDS: POLYETHYLENE GLYCOL 3350 17 GM PACKET. PO SCH ×2 (09:48→09:56)
[2018-11-27] MEDS: GABAPENTIN 300 MG CAPSULE. PO SCH ×3 (09:48→20:11)
[2018-11-27] MEDS ORDERED: levETIRAcetam 500 MG TABLET PO SCH (10:00)
[2018-11-27] MEDS ORDERED: HYDROCORTISONE 1% TOPICAL CREAM 30GM TUBE. TP PRN (10:15)
[2018-11-27 10:36] LABS: PROTHROMBIN TIME PATIENT 27.7 SEC (11.7-14.0)
[2018-11-27 11:12] VITALS: BP 118/63
[2018-11-27] MEDS ORDERED: PIP/TAZO PER PHARMACY MC PRN (11:45)
--- NOTE | 2018-11-27 11:48 | PDOC1 ---
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 Comes in because of community-acquired pneumonia with SOA, productive phlegm, fever 101.9 by EMS. Initially lactate was 2.6 now down to 1.2 with normal white count and afebrile here. WBC 8, hemoglobin 12. 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 No further increase in SOA, no desaturations. He is a DNR. We'll continue HCAP Treatment Past Medical History Cardiovascular: HTN, Other Pulmonary: COPD CENTRAL NERVOUS SYSTEM: CVA, Seizure, Other Past Surgical History Past Surgical History: Appendectomy, CABG, Hernia Repair, Other (heart valce replacement) Family History Family History: Family History Unknown Social History Smoke: No ALCOHOL: rare Drugs: Marijuana, Crystal meth Current Problem List Problem List Problems Medical Problems: (1) Facility-acquired pneumonia Status: Acute Current Medications Current Medications Current Medications Sodium Chloride 1,000 ml @ 1,000 mls/hr Q1H IV Last administered on 11/27/18at 03:00; Start 11/27/18 at 02:00; Stop 11/27/18 at 02:59; Status DC Albuterol/ Ipratropium (Duoneb) 3 ml 1X ONCE NEB Last administered on 11/27/18at 01:52; Start 11/27/18 at 02:00; Stop 11/27/18 at 02:01; Status DC Vancomycin HCl 250 ml @ 250 mls/hr 1X ONCE IV ; Start 11/27/18 at 03:30; Stop 11/27/18 at 04:29; Status UNV Piperacillin Sod/ Tazobactam Sod 3.375 gm/Sodium Chloride 50 ml @ 100 mls/hr 1X ONCE IV Last administered on 11/27/18at 03:38; Start 11/27/18 at 03:30; Stop 11/27/18 at 03:59; Status DC Vancomycin HCl 2 gm/Sodium Chloride 500 ml @ 250 mls/hr 1X ONCE IV Last administered on 11/27/18at 04:13; Start 11/27/18 at 04:00; Stop 11/27/18 at 05:59; Status DC Vancomycin HCl (Vanco Per Pharmacy) 1 each PRN DAILY PRN MC SEE COMMENTS Last administered on 11/27/18at 05:31; Start 11/27/18 at 03:30 Ondansetron HCl (Zofran) 4 mg PRN Q8HRS PRN IV NAUSEA/VOMITING 1ST CHOICE; Start 11/27/18 at 04:00; Stop 11/27/18 at 09:05; Status DC Sodium Chloride 1,000 ml @ 125 mls/hr Q8H IV Last administered on 11/27/18at 06:27; Start 11/27/18 at 04:30; Stop 11/28/18 at 04:29 Acetaminophen (Tylenol) 650 mg PRN Q4HRS PRN PO FEVER; Start 11/27/18 at 04:00; Stop 11/27/18 at 10:17; Status DC Albuterol/ Ipratropium (Duoneb) 3 ml RTQID NEB Last administered on 11/27/18at 08:04; Start 11/27/18 at 08:00; Stop 11/27/18 at 09:09; Status DC Vancomycin HCl 1.5 gm/Sodium Chloride 500 ml @ 250 mls/hr Q8H IV ; Start 11/27/18 at 12:00 Vancomycin HCl (Vancomycin Trough Level) 1 each 1X ONCE MC ; Start 11/28/18 at 03:30; Stop 11/28/18 at 03:31 Ondansetron HCl (Zofran) 4 mg PRN Q6HRS PRN IV NAUSEA/VOMITING 1ST CHOICE; Start 11/27/18 at 09:15 Acetaminophen (Tylenol) 650 mg PRN Q4HRS PRN PO MILD PAIN / TEMP; Start 11/27/18 at 09:15 Albuterol Sulfate (Ventolin Neb Soln) 2.5 mg PRN Q4HRS PRN INH SHORTNESS OF BREATH; Start 11/27/18 at 09:15 Bisacodyl (Dulcolax Tab) 10 mg PRN DAILY PRN PO CONSTIPATION; Start 11/27/18 at 09:15 Calcium Carbonate/ Glycine (Oscal) 1,000 mg PRN Q6HRS PRN PO HEART BURN; Start 11/27/18 at 12:00 Clonazepam (KlonoPIN) 0.25 mg Q8HRS PRN PO ANXIETY; Start 11/27/18 at 09:15 Betamethasone/ Clotrimazole (Lotrisone) 1 kofi BID TP ; Start 11/27/18 at 21:00; Status UNV Divalproex Sodium (Depakote Er) 500 mg BID PO Last administered on 11/27/18at 09:48; Start 11/27/18 at 10:00 Docusate Sodium (Colace) 100 mg BID PRN PO HARD STOOLS; Start 11/27/18 at 09:15 Gabapentin (Neurontin) 600 mg TID PO Last administered on 11/27/18at 09:48; Start 11/27/18 at 10:00 Guaifenesin (Mucinex) 600 mg PRN Q12HR PRN PO COUGH, 1ST CHOICE; Start 11/27/18 at 09:15 Acetaminophen/ Hydrocodone Bitart (Lortab 5/325) 1 tab PRN Q4HRS PRN PO MODERATE, SEVERE PAIN; Start 11/27/18 at 09:15; Status Cancel Albuterol/ Ipratropium (Duoneb) 3 ml RTQID NEB ; Start 11/27/18 at 12:00 Lactulose (Lactulose) 10 gm DAILY PO ; Start 11/28/18 at 09:00; Status UNV Levetiracetam (Keppra) 500 mg BID PO Last administered on 11/27/18at 09:48; Start 11/27/18 at 10:00; Stop 11/27/18 at 10:04; Status DC Oxycodone/ Acetaminophen (Percocet 7.5/ 325) 1 tab QID PRN PO SEVERE PAIN; Start 11/27/18 at 09:15 Tamsulosin HCl (Flomax) 0.4 mg DAILY PO Last administered on 11/27/18at 09:47; Start 11/27/18 at 10:00 Amitriptyline HCl (Elavil) 100 mg QHS PO ; Start 11/27/18 at 21:00 Budesonide (Pulmicort) 0.5 mg RTBID NEB ; Start 11/27/18 at 20:00 Hydrocortisone (Cortaid) 1 kofi PRN BID PRN TP RASH; Start 11/27/18 at 10:15 Levothyroxine Sodium (Synthroid) 25 mcg DAILY06 PO Last administered on 11/27/18at 09:47; Start 11/27/18 at 10:00 Non-Formulary Medication (Melatonin/ Pyridoxine Hcl (B6) (Melatonin 5 Mg Tablet)) 2 each HS PO ; Start 11/27/18 at 21:00; Status UNV Ondansetron HCl (Zofran Odt) 4 mg PRN Q8HRS PRN PO NAUSEA/VOMITING; Start 11/27/18 at 09:15 Phenytoin Sodium (Dilantin) 100 mg QHS PO ; Start 11/27/18 at 21:00 Phenytoin Sodium (Dilantin) 200 mg DAILY08 PO Last administered on 11/27/18at 09:48; Start 11/27/18 at 09:15 Polyethylene Glycol (miraLAX PACKET) 17 gm DAILY PO ; Start 11/27/18 at 10:00 Quetiapine Fumarate (SEROquel) 100 mg TID PO Last administered on 11/27/18at 09:48; Start 11/27/18 at 09:15 Warfarin Sodium (Coumadin) 3 mg DAILY16 PO ; Start 11/27/18 at 16:00 Guaifenesin (Robitussin Dm) 10 ml PRN Q6HRS PRN PO COUGH, 2ND CHOICE; Start 11/27/18 at 09:15 Warfarin Sodium (Coumadin Per Physician) 1 each PRN DAILY PRN MC SEE COMMENTS; Start 11/27/18 at 11:45 Active Scripts Active Reported Melatonin 3 Mg Tablet 5 Mg PO Clonazepam 0.5 Mg Tablet 0.25 Mg PO PRN TID PRN Duoneb 0.5-3(2.5) Mg/3 Ml (Albuterol/Ipratropium) 3 Ml Ampul.neb 3 Ml NEB PRN QID PRN Percocet 7.5-325 Mg Tablet (Oxycodone/Acetaminophen) 1 Each Tablet 1 Tab PO PRN Q4-6HRS PRN Calcium Carbonate 500 Mg Tablet 1,000 Mg PO PRN Q6HRS PRN Bisacodyl 5 Mg Tablet.dr 10 Mg PO PRN DAILY PRN Polyethylene Glycol 3350 17 Gm Powd.pack 17 Gm PO DAILY PRN Docusate Sodium 100 Mg Capsule 1 Cap PO BID PRN Levothyroxine Sodium 25 Mcg Tablet 1 Tab PO DAILY Prednisone 5 Mg Tablet 10 Mg PO DAILY Clonazepam 0.5 Mg Tablet 0.25 Mg PO Q8HRS PRN Warfarin Sodium 3 Mg Tablet 3 Mg PO DAILY Hydrocortisone 453.6 Gm Cream..g. 1 Kofi TP PRN BID Tylenol (Acetaminophen) 325 Mg Tablet 975 Mg PO PRN Q6HRS PRN Proair Hfa Inhaler (Albuterol Sulfate) 8.5 Gm Hfa.aer.ad 2 Puff INH PRN Q4HRS PRN Dilantin (Phenytoin Sodium Extended) 100 Mg Capsule 200 Mg PO DAILY08 Dilantin (Phenytoin Sodium Extended) 100 Mg Capsule 1 Cap PO HS Flovent 110MCG Hfa (Fluticasone Propionate) 12 Gm Aer.w.adap 2 Puff IH BID Divalproex Sodium Er (Divalproex Sodium) 500 Mg Tab.er.24h 1 Tab PO BID Seroquel (Quetiapine Fumarate) 50 Mg Tablet 100 Mg PO TID Amitriptyline Hcl 100 Mg Tablet 1 Tab PO QHS Flomax (Tamsulosin Hcl) 0.4 Mg Cap.er.24h 1 Cap PO DAILY Gabapentin (Gabapentin) 300 Mg Capsule 600 Mg PO TID Allergies Allergies: Coded Allergies: chlorpromazine (Unverified Allergy, Intermediate, 12/21/13) ROS Review of System as per history of present illness, the rest of ROS 14 point negative Physical Exam General: Alert, Oriented X3, Cooperative, No acute distress HEENT: Atraumatic, PERRLA Lungs: Normal air movement, Other (diminished breath sounds, symmetrical chest expansion, dullness to percussion bases, no wheezing) Heart: S1S2, RRR, no thrills, no rubs, no gallops, no murmurs Cardiovascular: S1, S2 Abdomen: Normal bowel sounds, Soft, No tenderness, No hepatosplenomegaly, No masses Male Genitals Exam: normal genitalia, normal prostate Rectal Exam: not examined PELVIC: Nml ext genitalia Extremities: No clubbing, No cyanosis, No edema, Normal pulses, No tenderness/swelling Skin: No rashes, No breakdown, No significant lesion Neuro: Normal gait, Normal speech, Strength at 5/5 X4 ext, Normal tone, Sensation intact, Cranial nerves 3-12 NL, Reflexes 2+ Psych/Mental Status: Mental status NL, Mood NL Vitals Vitals Vital Signs Date Time Temp Pulse Resp B/P (MAP) Pulse Ox O2 Delivery O2 Flow Rate FiO2 11/27/18 11:12 97.6 86 20 118/63 (81) 94 Nasal Cannula 6.0 97.6 Labs Labs Laboratory Tests Test 11/27/18 02:25 11/27/18 02:37 11/27/18 03:50 11/27/18 06:16 White Blood Count 8.2 x10^3/uL (4.0-11.0) Red Blood Count 3.98 x10^6/uL (4.30-5.70) Hemoglobin 12.8 g/dL (13.0-17.5) Hematocrit 38.2 % (39.0-53.0) Mean Corpuscular Volume 96 fL (79-100) Mean Corpuscular Hemoglobin 32 pg (25-35) Mean Corpuscular Hemoglobin Concent 34 g/dL (31-37) Red Cell Distribution Width 16.5 % (11.5-14.5) Platelet Count 143 x10^3/uL (140-400) Neutrophils (%) (Auto) 75 % (31-73) Lymphocytes (%) (Auto) 15 % (24-48) Monocytes (%) (Auto) 7 % (0-9) Eosinophils (%) (Auto) 3 % (0-3) Basophils (%) (Auto) 1 % (0-3) Neutrophils # (Auto) 6.1 x10^3uL (1.8-7.7) Lymphocytes # (Auto) 1.2 x10^3/uL (1.0-4.8) Monocytes # (Auto) 0.5 x10^3/uL (0.0-1.1) Eosinophils # (Auto) 0.2 x10^3/uL (0.0-0.7) Basophils # (Auto) 0.1 x10^3/uL (0.0-0.2) Lactic Acid Level 2.6 mmol/L (0.4-2.0) 1.2 mmol/L (0.4-2.0) Urine Collection Type Unknown Urine Color Yellow Urine Clarity Clear Urine pH 6.5 Urine Specific [place] 1.025 Urine Protein Negative mg/dL (NEG-TRACE) Urine Glucose (UA) Negative mg/dL (NEG) Urine Ketones (Stick) Negative mg/dL (NEG) Urine Blood Negative (NEG) Urine Nitrite Negative (NEG) Urine Bilirubin Negative (NEG) Urine Urobilinogen Dipstick 1.0 mg/dL (0.2 mg/dL) Urine Leukocyte Esterase Negative (NEG) Urine RBC 6-10 /HPF (0-2) Urine WBC 0 /HPF (0-4) Urine Squamous Epithelial Cells Few /LPF Urine Bacteria 0 /HPF (0-FEW) Urine Mucus Mod /LPF Sodium Level 142 mmol/L (136-145) Potassium Level 3.8 mmol/L (3.5-5.1) Chloride Level 104 mmol/L (98-107) Carbon Dioxide Level 29 mmol/L (21-32) Anion Gap 9 (6-14) Blood Urea Nitrogen 20 mg/dL (8-26) Creatinine 0.8 mg/dL (0.7-1.3) Estimated GFR (Cockcroft-Gault) 101.9 BUN/Creatinine Ratio 25 (6-20) Glucose Level 125 mg/dL (70-99) Calcium Level 8.1 mg/dL (8.5-10.1) Total Bilirubin 0.2 mg/dL (0.2-1.0) Aspartate Amino Transf (AST/SGOT) 23 U/L (15-37) Alanine Aminotransferase (ALT/SGPT) 34 U/L (16-63) Alkaline Phosphatase 90 U/L (46-116) Troponin I Quantitative 0.020 ng/mL (0.000-0.055) RU-Dsm-T-Type Natriuretic Peptide 297 pg/mL (0-124) Total Protein 6.5 g/dL (6.4-8.2) Albumin 3.0 g/dL (3.4-5.0) Albumin/Globulin Ratio 0.9 (1.0-1.7) Test 11/27/18 09:45 Erythrocyte Sedimentation Rate 12 (0-15) Prothrombin Time 27.7 SEC (11.7-14.0) Prothromb Time International Ratio 2.6 (0.8-1.1) Laboratory Tests Test 11/27/18 02:25 11/27/18 02:37 11/27/18 03:50 11/27/18 06:16 White Blood Count 8.2 x10^3/uL (4.0-11.0) Red Blood Count 3.98 x10^6/uL (4.30-5.70) Hemoglobin 12.8 g/dL (13.0-17.5) Hematocrit 38.2 % (39.0-53.0) Mean Corpuscular Volume 96 fL (79-100) Mean Corpuscular Hemoglobin 32 pg (25-35) Mean Corpuscular Hemoglobin Concent 34 g/dL (31-37) Red Cell Distribution Width 16.5 % (11.5-14.5) Platelet Count 143 x10^3/uL (140-400) Neutrophils (%) (Auto) 75 % (31-73) Lymphocytes (%) (Auto) 15 % (24-48) Monocytes (%) (Auto) 7 % (0-9) Eosinophils (%) (Auto) 3 % (0-3) Basophils (%) (Auto) 1 % (0-3) Neutrophils # (Auto) 6.1 x10^3uL (1.8-7.7) Lymphocytes # (Auto) 1.2 x10^3/uL (1.0-4.8) Monocytes # (Auto) 0.5 x10^3/uL (0.0-1.1) Eosinophils # (Auto) 0.2 x10^3/uL (0.0-0.7) Basophils # (Auto) 0.1 x10^3/uL (0.0-0.2) Lactic Acid Level 2.6 mmol/L (0.4-2.0) 1.2 mmol/L (0.4-2.0) Urine Collection Type Unknown Urine Color Yellow Urine Clarity Clear Urine pH 6.5 Urine Specific [place] 1.025 Urine Protein Negative mg/dL (NEG-TRACE) Urine Glucose (UA) Negative mg/dL (NEG) Urine Ketones (Stick) Negative mg/dL (NEG) Urine Blood Negative (NEG) Urine Nitrite Negative (NEG) Urine Bilirubin Negative (NEG) Urine Urobilinogen Dipstick 1.0 mg/dL (0.2 mg/dL) Urine Leukocyte Esterase Negative (NEG) Urine RBC 6-10 /HPF (0-2) Urine WBC 0 /HPF (0-4) Urine Squamous Epithelial Cells Few /LPF Urine Bacteria 0 /HPF (0-FEW) Urine Mucus Mod /LPF Sodium Level 142 mmol/L (136-145) Potassium Level 3.8 mmol/L (3.5-5.1) Chloride Level 104 mmol/L (98-107) Carbon Dioxide Level 29 mmol/L (21-32) Anion Gap 9 (6-14) Blood Urea Nitrogen 20 mg/dL (8-26) Creatinine 0.8 mg/dL (0.7-1.3) Estimated GFR (Cockcroft-Gault) 101.9 BUN/Creatinine Ratio 25 (6-20) Glucose Level 125 mg/dL (70-99) Calcium Level 8.1 mg/dL (8.5-10.1) Total Bilirubin 0.2 mg/dL (0.2-1.0) Aspartate Amino Transf (AST/SGOT) 23 U/L (15-37) Alanine Aminotransferase (ALT/SGPT) 34 U/L (16-63) Alkaline Phosphatase 90 U/L (46-116) Troponin I Quantitative 0.020 ng/mL (0.000-0.055) BC-Iqw-F-Type Natriuretic Peptide 297 pg/mL (0-124) Total Protein 6.5 g/dL (6.4-8.2) Albumin 3.0 g/dL (3.4-5.0) Albumin/Globulin Ratio 0.9 (1.0-1.7) Test 11/27/18 09:45 Erythrocyte Sedimentation Rate 12 (0-15) Prothrombin Time 27.7 SEC (11.7-14.0) Prothromb Time International Ratio 2.6 (0.8-1.1) VTE Prophylaxis Ordered VTE Prophylaxis Devices: Yes VTE Pharmacological Prophylaxi: Yes Assessment/Plan Assessment/Plan HCAP Sepsis with no organ dysfunction SNU resident 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
[2018-11-27] MEDS: IPRATRPIUM/ALBUTEROL 0.5/2.5MG 3 ML NEBU. NEB SCH ×3 (11:55→20:05)
[2018-11-27] MEDS ORDERED: CALCIUM CARBONATE 500 MG TABLET PO PRN (12:00)
[2018-11-27] MEDS: VANCOMYCIN 1.5 GM in IV NORMAL SALINE 500ML BAG 500 ML IV SCH ×2 (12:45→20:13)
[2018-11-27] MEDS: PIPERACILLIN/TAZOBACTAM 4.5 GM in IV NORMAL SALINE 100ML 100 ML IV SCH ×2 (12:45→16:51)
--- NOTE | 2018-11-27 14:05 | NUR ---
Pharmacy Warfarin Dosing Note S:Pharmacy consulted to assist with anticoagulation therapy O:DECEMBER,ANALI Correa is a 53 year old M with a Bioprosthetic Valve LABS: Last INR: 2.6 Last HGB: 12.8 Last HCT: 38.2 Last PLT: 143 Previous Regimen: 3 mg Qhs Vitamin K given: N Drug Interaction Changes: New Interacting Drug Ongoing Drug Interactions: Zosyn A:INR of 2.6 is within desired range. Target range for this patient is: 2 - 3 P: Warfarin dose: 3 mg today at 1600 Bridge Therapy: None Next INR due 11/28/18 Pharmacy anticoagulation service will continue to follow. VANNA CHRISTIAN [facility], 11/27/18 [id number]
[2018-11-27] MEDS ORDERED: WARFARIN 3 MG TABLET. PO SCH (16:00)
[2018-11-27] MEDS ORDERED: WARFARIN 3 MG TABLET. PO ONE (16:00)
--- NOTE | 2018-11-27 16:24 | NUR ---
SW notified pt is from [facility]. SW confirmed with facility pt is LTC resident and plan of return upon dc.
[2018-11-27] MEDS: oxyCODONE/APAP 7.5/325 1 TAB TABLET PO PRN (16:51)
[2018-11-27] MEDS: ACETAMINOPHEN 325 MG TABLET. PO PRN (16:51)
[2018-11-27 19:51] VITALS: BP 90/50
[2018-11-27] MEDS: BUDESONIDE 0.5 MG/2 ML NEBU. NEB SCH (20:05)
[2018-11-27] MEDS: LACTOBACILLUS RHAMNOSUS GG 1 CAPSULE. PO SCH (20:12)
[2018-11-27] MEDS ORDERED: CLOTRIMAZOLE/BETAMETH 1%-0.05% TOPICAL CREAM 15GM TUBE. TP SCH (21:00)
[2018-11-27] MEDS ORDERED: PYRIDOXINE HCL PO SCH (21:00)
[2018-11-27] MEDS ORDERED: MELATONIN PO SCH (21:00)
[2018-11-27] MEDS ORDERED: PHENYTOIN SODIUM EXTENDED 100 MG CAPSULE PO SCH (21:00)
[2018-11-27] MEDS ORDERED: AMITRIPTYLINE HCL 25 MG TABLET. PO SCH (21:00)
[2018-11-27] MEDS ORDERED: CALCIUM CARBONATE 500 MG TAB.CHEW PO PRN (22:30)
[2018-11-27 23:52] VITALS: BP 98/57
[2018-11-28] MEDS: PIPERACILLIN/TAZOBACTAM 4.5 GM in IV NORMAL SALINE 100ML 100 ML IV SCH ×3 (00:16→12:00)
[2018-11-28 03:55] VITALS: BP 100/56
[2018-11-28] MEDS: VANCOMYCIN 1.5 GM in IV NORMAL SALINE 500ML BAG 500 ML IV SCH (04:00)
[2018-11-28] MEDS: ACETAMINOPHEN 325 MG TABLET. PO PRN ×3 (04:41→14:28)
[2018-11-28] MEDS: LEVOTHYROXINE 25 MCG TABLET. PO SCH (04:42)
[2018-11-28 04:50] LABS: PROTHROMBIN TIME PATIENT 24.7 SEC (11.7-14.0)
[2018-11-28 05:11] LABS: VANC TR 28.4 mcg/mL (10.0-20.0)
[2018-11-28] MEDS: VANCOMYCIN PER PHARMACY MC PRN (06:11)
--- NOTE | 2018-11-28 06:11 | NUR ---
Pharmacy Vancomycin Dosing Note S:Consulted to monitor and dose vancomycin started 11/27/18. O:DECEMBER,ANALI Correa is a 53 year old M with HCAP . Height: 6 feet, 3 inches Weight: 112.903858 kg [place] Body Weight: 84.50 Adjusted Body Weight: 90.62 Dosing Weight: Actual Other Antibiotics: ZOSYN 4.5G IV Q6HRS LABS: Last BUN: 20 Last Creatinine: 0.8 Creatinine Clearance: 140 mL/min Last WBC: 8.2 Last Procalcitonin: ordered for 11/28 Tmax (past 24 hours): 99.9 Microbiology: BLOOD CX PENDING I/O: 1050/- Drug Levels: Last Trough level: 28.4 on 11/28/18 at 0330 Last dose given 11/27/18 at 1245 Vancomycin Dosing: Loading Dose: 2000 mg x1 Dosing Weight: Actual Target Trough: 15-20 A: Based on: TROUGH P: 1. Hold Vancomycin 1500 mg IV q8h 2. Follow up Random level on 11/28/18 at 1000 3. Pharmacy will continue to monitor, follow and adjust therapy as needed. NICOLE PARHAM RPH, 11/28/18611 Signed: 11/28/18 at 611 by NICOLE PARHAM RPH PHA
[2018-11-28 06:13] LABS: CREATININE 0.7 mg/dL (0.7-1.3); GFR 118.9
[2018-11-28 07:00] VITALS: BP 107/74
[2018-11-28] MEDS: IPRATRPIUM/ALBUTEROL 0.5/2.5MG 3 ML NEBU. NEB SCH ×3 (08:09→16:12)
[2018-11-28] MEDS: BUDESONIDE 0.5 MG/2 ML NEBU. NEB SCH (08:12)
[2018-11-28] MEDS ORDERED: LACTULOSE 20 GM/30 ML SOLUTION. PO SCH (09:00)
[2018-11-28] MEDS: POLYETHYLENE GLYCOL 3350 17 GM PACKET. PO SCH (09:13)
[2018-11-28] MEDS: TAMSULOSIN 0.4 MG CAP.ER.24H. PO SCH (09:13)
[2018-11-28] MEDS: LACTOBACILLUS RHAMNOSUS GG 1 CAPSULE. PO SCH (09:14)
[2018-11-28] MEDS: GABAPENTIN 300 MG CAPSULE. PO SCH ×2 (09:14→14:27)
[2018-11-28] MEDS: DIVALPROEX EXTENDED RELEASE 500 MG TAB.ER.24H. PO SCH (09:14)
[2018-11-28] MEDS: PHENYTOIN SODIUM EXTENDED 100 MG CAPSULE PO SCH (09:14)
[2018-11-28] MEDS: QUEtiapine 100 MG TABLET. PO SCH ×2 (09:14→14:27)
[2018-11-28] MEDS: oxyCODONE/APAP 7.5/325 1 TAB TABLET PO PRN ×2 (09:25→15:14)
[2018-11-28] MEDS ORDERED: VANCOMYCIN RANDOM LEVEL. MC ONE (10:00)
[2018-11-28] MEDS ORDERED: BENZ100C PO (10:37)
[2018-11-28] MEDS ORDERED: LEVO500T59 PO (10:37)
--- NOTE | 2018-11-28 10:40 | SNU/HH DC ---
DISCHARGE ORDERS DISCHARGE INFORMATION: DISCHARGE DATE: November 28, 2018 FINAL DIAGNOSIS Problems Medical Problems: (1) Facility-acquired pneumonia Status: Acute CONDITION ON DISCHARGE: Stable CODE STATUS: Code Status: DNR/DNI LONG-TERM: SNF STAY <30 DAYS: Yes HOSPICE: HOSPICE: No HOSPICE EVAL & TREAT: No LTAC: ADMIT TO LTAC: No POST DISCHARGE ORDERS: ACTIVITY ORDERS: Activity as tolerated WEIGHT BEARING STATUS: Non weight bearing DIET AFTER DISCHARGE: Regular CHECKS AFTER DISCHARGE: CHECKS AFTER DISCHARGE: Check blood press - daily, Check blood sugar, ac/hs FOLLOW-UP: PHYSICIAN FOLLOW-UP: PCP if no better TREATMENT/EQUIPMENT ORDERS: Physical Therapy For: Evalulation/Treatment Occupational Therapy For: Evaluation/Treatment DISCHARGE MEDICATIONS: Home Meds Active Scripts Benzonatate (TESSALON PERLE) 100 Mg Capsule, 1 CAP PO TID for cough, #21 CAP Prov:NAIDA ANDERS MD 11/28/18 Levofloxacin (LEVAQUIN) 500 Mg Tablet, 1 TAB PO DAILY for HCAP, #7 TAB Prov:NAIDA ANDERS MD 11/28/18 Reported Medications Melatonin (MELATONIN) 3 Mg Tablet, 5 MG PO, TAB 11/27/18 Clonazepam (CLONAZEPAM) 0.5 Mg Tablet, 0.25 MG PO PRN TID PRN for ANXIETY / AGITATION, TAB 11/27/18 Ipratropium/Albuterol Sulfate (DUONEB 0.5-3(2.5) MG/3 ML) 3 Ml Ampul.neb, 3 ML NEB PRN QID PRN for SHORTNESS OF BREATH, EACH 11/27/18 Oxycodone/Apap 7.5-325 (PERCOCET 7.5-325 MG TABLET ) 1 Each Tablet, 1 TAB PO PRN Q4-6HRS PRN for PAIN, TAB 0 Refills 11/27/18 Calcium Carbonate (CALCIUM CARBONATE) 500 Mg Tablet, 1000 MG PO PRN Q6HRS PRN for HEARTBURN / GAS, TAB 11/27/18 Bisacodyl (BISACODYL) 5 Mg Tablet.dr, 10 MG PO PRN DAILY PRN for CONSTIPATION, TAB 0 Refills 11/27/18 Polyethylene Glycol 3350 (POLYETHYLENE GLYCOL 3350) 17 Gm Powd.pack, 17 GM PO DAILY PRN for CONS, PKT 11/27/18 Docusate Sodium (DOCUSATE SODIUM) 100 Mg Capsule, 1 CAP PO BID PRN for CONSTIPATION, #30 CAP 11/27/18 Levothyroxine Sodium (LEVOTHYROXINE SODIUM) 25 Mcg Tablet, 1 TAB PO DAILY for thyroid, #30 TAB 5 Refills 11/27/18 Prednisone (PREDNISONE) 5 Mg Tablet, 10 MG PO DAILY for copd, TAB 11/27/18 Clonazepam (CLONAZEPAM) 0.5 Mg Tablet, 0.25 MG PO Q8HRS PRN for ANXIETY, #30 TAB 11/27/18 Warfarin Sodium (WARFARIN SODIUM) 3 Mg Tablet, 3 MG PO DAILY for anticoagulation, #30 TAB 11/27/18 Hydrocortisone (HYDROCORTISONE) 453.6 Gm Cream..g., 1 NENITA TP PRN BID for facial rash , #30 GM 04/09/18 Acetaminophen (TYLENOL) 325 Mg Tablet, 975 MG PO PRN Q6HRS PRN for PA, #30 TAB 04/09/18 Albuterol Sulfate (PROAIR HFA INHALER) 8.5 Gm Hfa.aer.ad, 2 PUFF INH PRN Q4HRS PRN for SHORTNESS OF BREATH, INHALER 0 Refills 04/09/18 Phenytoin Sodium Extended (DILANTIN) 100 Mg Capsule, 200 MG PO DAILY08, CAP 04/09/18 Phenytoin Sodium Extended (DILANTIN) 100 Mg Capsule, 1 CAP PO HS, #90 CAP 2 Refills 04/09/18 Fluticasone Propionate (FLOVENT 110MCG HFA) 12 Gm Aer.w.adap, 2 PUFF IH BID, #1 INHALER 3 Refills 04/09/18 Divalproex Sodium (DIVALPROEX SODIUM ER) 500 Mg Tab.er.24h, 1 TAB PO BID, #60 TAB 2 Refills 04/09/18 Quetiapine Fumarate (SEROQUEL) 50 Mg Tablet, 100 MG PO TID for psychosis, TAB 04/09/18 Amitriptyline Hcl (AMITRIPTYLINE HCL) 100 Mg Tablet, 1 TAB PO QHS, #30 TAB 1 Refill 04/09/18 Tamsulosin Hcl (FLOMAX) 0.4 Mg Cap.er.24h, 1 CAP PO DAILY, #30 CAP 11 Refills 11/22/14 Gabapentin (GABAPENTIN ) 300 Mg Capsule, 600 MG PO TID for mild pain, CAP 11/22/14 Discontinued Reported Medications Acetaminophen (TYLENOL) 325 Mg Tablet, 2.5 TAB PO PRN Q4HRS for mild pain, #30 TAB 11/27/18 Melatonin/Pyridoxine Hcl (B6) (MELATONIN 5 MG TABLET) 1 Each Tablet, 2 EACH PO HS for insomnia, TAB 11/27/18 Clotrimazole/Betamethasone Dip (LOTRISONE CREAM) 15 Gm Cream..g., 1 NENITA TP BID for facial rash, #15 GM 04/09/18 Hydrocodone/Apap 5-325 (NORCO 5-325 TABLET) 1 Each Tablet, 1 TAB PO PRN Q4HRS PRN for PAIN, TAB 0 Refills 04/09/18 Ondansetron Hcl (ZOFRAN) 4 Mg Tablet, 1 TAB PO PRN Q6-8HRS, #5 TAB 04/09/18 Guaifenesin (MUCINEX) 600 Mg Tablet.er, 600 MG PO PRN Q12HR PRN for COUGH, TAB.SR 04/09/18 Lactulose (LACTULOSE) 20 Gm/30 Ml Solution, 10 GM PO DAILY, MISC 04/09/18 Warfarin Sodium (COUMADIN) 4 Mg Tablet, 1 TAB PO DAILY, #30 TAB 3 Refills 04/09/18 Levetiracetam (KEPPRA) 500 Mg Tablet, 1 TAB PO BID, #180 TAB 3 Refills 11/22/14 NAIDA ANDERS MD November 28, 2018 10:40
--- NOTE | 2018-11-28 10:44 | PDOC3 ---
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 DNR Febrile episodes Right amputee Final Diagnosis Problems Medical Problems: (1) Facility-acquired pneumonia Status: Acute Brief Hospital Course Allergies Allergies Coded Allergies Type Severity Reaction Last Updated Verified chlorpromazine Allergy Intermediate 12/21/13 No Vital Signs Vital Signs Date Time Temp Pulse Resp B/P (MAP) Pulse Ox O2 Delivery O2 Flow Rate FiO2 11/28/18 08:12 95 Nasal Cannula 6.0 11/28/18 07:00 97.6 73 17 107/74 (85) 97.6 Lab Results Laboratory Tests Test 11/27/18 02:25 11/27/18 02:37 11/27/18 03:50 11/27/18 06:16 White Blood Count 8.2 x10^3/uL (4.0-11.0) Red Blood Count 3.98 x10^6/uL (4.30-5.70) Hemoglobin 12.8 g/dL (13.0-17.5) Hematocrit 38.2 % (39.0-53.0) Mean Corpuscular Volume 96 fL (79-100) Mean Corpuscular Hemoglobin 32 pg (25-35) Mean Corpuscular Hemoglobin Concent 34 g/dL (31-37) Red Cell Distribution Width 16.5 % (11.5-14.5) Platelet Count 143 x10^3/uL (140-400) Neutrophils (%) (Auto) 75 % (31-73) Lymphocytes (%) (Auto) 15 % (24-48) Monocytes (%) (Auto) 7 % (0-9) Eosinophils (%) (Auto) 3 % (0-3) Basophils (%) (Auto) 1 % (0-3) Neutrophils # (Auto) 6.1 x10^3uL (1.8-7.7) Lymphocytes # (Auto) 1.2 x10^3/uL (1.0-4.8) Monocytes # (Auto) 0.5 x10^3/uL (0.0-1.1) Eosinophils # (Auto) 0.2 x10^3/uL (0.0-0.7) Basophils # (Auto) 0.1 x10^3/uL (0.0-0.2) Lactic Acid Level 2.6 mmol/L (0.4-2.0) 1.2 mmol/L (0.4-2.0) Urine Collection Type Unknown Urine Color Yellow Urine Clarity Clear Urine pH 6.5 Urine Specific [place] 1.025 Urine Protein Negative mg/dL (NEG-TRACE) Urine Glucose (UA) Negative mg/dL (NEG) Urine Ketones (Stick) Negative mg/dL (NEG) Urine Blood Negative (NEG) Urine Nitrite Negative (NEG) Urine Bilirubin Negative (NEG) Urine Urobilinogen Dipstick 1.0 mg/dL (0.2 mg/dL) Urine Leukocyte Esterase Negative (NEG) Urine RBC 6-10 /HPF (0-2) Urine WBC 0 /HPF (0-4) Urine Squamous Epithelial Cells Few /LPF Urine Bacteria 0 /HPF (0-FEW) Urine Mucus Mod /LPF Sodium Level 142 mmol/L (136-145) Potassium Level 3.8 mmol/L (3.5-5.1) Chloride Level 104 mmol/L (98-107) Carbon Dioxide Level 29 mmol/L (21-32) Anion Gap 9 (6-14) Blood Urea Nitrogen 20 mg/dL (8-26) Creatinine 0.8 mg/dL (0.7-1.3) Estimated GFR (Cockcroft-Gault) 101.9 BUN/Creatinine Ratio 25 (6-20) Glucose Level 125 mg/dL (70-99) Calcium Level 8.1 mg/dL (8.5-10.1) Total Bilirubin 0.2 mg/dL (0.2-1.0) Aspartate Amino Transf (AST/SGOT) 23 U/L (15-37) Alanine Aminotransferase (ALT/SGPT) 34 U/L (16-63) Alkaline Phosphatase 90 U/L (46-116) Troponin I Quantitative 0.020 ng/mL (0.000-0.055) MO-Tvc-S-Type Natriuretic Peptide 297 pg/mL (0-124) Total Protein 6.5 g/dL (6.4-8.2) Albumin 3.0 g/dL (3.4-5.0) Albumin/Globulin Ratio 0.9 (1.0-1.7) Test 11/27/18 09:45 11/28/18 03:35 Erythrocyte Sedimentation Rate 12 (0-15) Prothrombin Time 27.7 SEC (11.7-14.0) 24.7 SEC (11.7-14.0) Prothromb Time International Ratio 2.6 (0.8-1.1) 2.3 (0.8-1.1) Creatinine 0.7 mg/dL (0.7-1.3) Estimated GFR (Cockcroft-Gault) 118.9 Procalcitonin 1.34 ng/mL (0.00-0.10) Vancomycin Level Trough 28.4 mcg/mL (10.0-20.0) Vancomycin Last Dose Date Vancomycin Last Dose Time 1999 Laboratory Tests Test 11/28/18 03:35 Prothrombin Time 24.7 SEC (11.7-14.0) Prothromb Time International Ratio 2.3 (0.8-1.1) Creatinine 0.7 mg/dL (0.7-1.3) Estimated GFR (Cockcroft-Gault) 118.9 Procalcitonin 1.34 ng/mL (0.00-0.10) Vancomycin Level Trough 28.4 mcg/mL (10.0-20.0) Vancomycin Last Dose Date Vancomycin Last Dose Time 1999 Brief Hospital Course Mr. Jackson is a 53 old male who lives in SNU resident, chronic right leg amputee, came in for HCAP. No fever, normal sedimentation rate, no white count. Treated with Vanco and Zosyn cultures negative. Quite unhappy course, some nursing care issues. Wants to be discharged and that is okay. Medically looks good. By mouth Levaquin and some Tessalon Perles to SNU Others the rest of meds to continue Consults performed none Procedures performed just chest imaging dc < 30 mins Discharge Information Condition at Discharge: Improved, Stable Disposition/Orders: Other (snu) Scheduled Amitriptyline Hcl (Amitriptyline Hcl) 100 Mg Tablet, 1 TAB PO QHS, #30 Ref 1 (Reported) Entered as Reported by: ELENA VALDEZ on 04/09/18 0724 Last Action: Converted on 11/27/18 0905 by NAIDA ANDERS Benzonatate (Tessalon Perle) 100 Mg Capsule, 1 CAP PO TID for cough, #21 Prescribed by: NAIDA ANDERS on 11/28/18 1037 Divalproex Sodium (Divalproex Sodium Er) 500 Mg Tab.er.24h, 1 TAB PO BID, #60 Ref 2 (Reported) Entered as Reported by: ELENA VALDEZ on 04/09/18723 Last Action: Continued on 11/27/18904 by NAIDA ANDERS Fluticasone Propionate (Flovent 110MCG Hfa) 12 Gm Aer.w.adap, 2 PUFF IH BID, #1 Ref 3 (Reported) Entered as Reported by: ELENA VALDEZ on 04/09/18723 Last Action: Converted on 11/27/18904 by NAIDA ANDERS Gabapentin (Gabapentin ) 300 Mg Capsule, 600 MG PO TID for mild pain, (Reported) Entered as Reported by: KENYETTA MITCHELL on 11/22/142110 Last Action: Continued on 11/27/18904 by NAIDA ANDERS Hydrocortisone (Hydrocortisone) 453.6 Gm Cream..g., 1 NENITA TP PRN BID for facial rash , #30 (Reported) Entered as Reported by: ELENA VALDEZ on 04/09/18731 Last Action: Converted on 11/27/18904 by NAIDA ANDERS Levofloxacin (Levaquin) 500 Mg Tablet, 1 TAB PO DAILY for HCAP, #7 Prescribed by: NAIDA ANDERS on 11/28/18 1037 Levothyroxine Sodium (Levothyroxine Sodium) 25 Mcg Tablet, 1 TAB PO DAILY for thyroid, #30 Ref 5 (Reported) Entered as Reported by: MARY STERN on 11/27/18747 Last Action: Converted on 11/27/18904 by NAIDA ANDERS Phenytoin Sodium Extended (Dilantin) 100 Mg Capsule, 1 CAP PO HS, #90 Ref 2 (Reported) Entered as Reported by: ELENA VALDEZ on 04/09/18724 Last Action: Converted on 11/27/18904 by NAIDA ANDERS Phenytoin Sodium Extended (Dilantin) 100 Mg Capsule, 200 MG PO DAILY08, (Reported) Entered as Reported by: ELENA VALDEZ on 04/09/18724 Last Action: Converted on 11/27/18904 by NAIDA ANDERS Prednisone (Prednisone) 5 Mg Tablet, 10 MG PO DAILY for copd, (Reported) Entered as Reported by: MARY STERN on 11/27/18747 Last Action: HELD on 11/27/18904 by NAIDA ANDERS Quetiapine Fumarate (Seroquel) 50 Mg Tablet, 100 MG PO TID for psychosis, (Reported) Entered as Reported by: ELENA VALDEZ on 04/09/18723 Last Action: Converted on 11/27/18904 by NAIDA ANDERS Tamsulosin Hcl (Flomax) 0.4 Mg Cap.er.24h, 1 CAP PO DAILY, #30 Ref 11 (Reported) Entered as Reported by: KENYETTA MITCHELL on 11/22/142110 Last Action: Continued on 11/27/18904 by NAIDA ANDERS Warfarin Sodium (Warfarin Sodium) 3 Mg Tablet, 3 MG PO DAILY for anticoagulation, #30 (Reported) Entered as Reported by: MARY STERN on 11/27/18747 Last Action: Converted on 11/27/18904 by NAIDA ANDERS Scheduled PRN Acetaminophen (Tylenol) 325 Mg Tablet, 975 MG PO PRN Q6HRS PRN for PA, #30 (Reported) Entered as Reported by: ELENA VALDEZ on 04/09/18731 Last Action: Edited on 11/27/181000 by VANNA CHRISTIAN [facility] Albuterol Sulfate (Proair Hfa Inhaler) 8.5 Gm Hfa.aer.ad, 2 PUFF INH PRN Q4HRS PRN for SHORTNESS OF BREATH, Ref 0 (Reported) Entered as Reported by: ELENA VALDEZ on 04/09/18731 Last Action: Continued on 11/27/18904 by NAIDA ANDERS Bisacodyl (Bisacodyl) 5 Mg Tablet.dr, 10 MG PO PRN DAILY PRN for CONSTIPATION, Ref 0 (Reported) Entered as Reported by: MARY STERN on 11/27/18747 Last Action: Continued on 11/27/18904 by NAIDA ANDERS Calcium Carbonate (Calcium Carbonate) 500 Mg Tablet, 1,000 MG PO PRN Q6HRS PRN for HEARTBURN / GAS, (Reported) Entered as Reported by: MARY STERN on 11/27/18747 Last Action: Edited on 11/27/181000 by VANNA CHRISTIAN RP Clonazepam (Clonazepam) 0.5 Mg Tablet, 0.25 MG PO Q8HRS PRN for ANXIETY, #30 (Reported) Entered as Reported by: MARY STERN on 11/27/18747 Last Action: Edited on 11/27/18945 by VANNA CHRISTIAN [facility] Clonazepam (Clonazepam) 0.5 Mg Tablet, 0.25 MG PO PRN TID PRN for ANXIETY / AGITATION, (Reported) Entered as Reported by: VANNA CHRISTIAN R[facility] on 11/27/18945 Last Action: New Order on 11/27/18945 by VANNA CHRISTIAN [facility] Docusate Sodium (Docusate Sodium) 100 Mg Capsule, 1 CAP PO BID PRN for CONSTIPATION, #30 (Reported) Entered as Reported by: MARY STERN on 11/27/18747 Last Action: Continued on 11/27/18904 by NAIDA ANDERS Ipratropium/Albuterol Sulfate (Duoneb 0.5-3(2.5) Mg/3 Ml) 3 Ml Ampul.neb, 3 ML NEB PRN QID PRN for SHORTNESS OF BREATH, (Reported) Entered as Reported by: MARY STERN on 11/27/18747 Last Action: Edited on 11/27/181000 by VANNA CHRISTIAN R[facility] Oxycodone/Apap 7.5-325 (Percocet 7.5-325 Mg Tablet ) 1 Each Tablet, 1 TAB PO PRN Q4-6HRS PRN for PAIN, Ref 0 (Reported) Entered as Reported by: MARY STERN on 11/27/18747 Last Action: Continued on 11/27/18904 by NAIDA ANDERS Polyethylene Glycol 3350 (Polyethylene Glycol 3350) 17 Gm Powd.pack, 17 GM PO DAILY PRN for CONS, (Reported) Entered as Reported by: MARY STERN on 11/27/18747 Last Action: Edited on 11/27/181000 by VANNA CHRISTIAN R[facility] Miscellaneous Medications Melatonin (Melatonin) 3 Mg Tablet, 5 MG PO, (Reported) Entered as Reported by: VANNA CHRISTIAN RPH on 11/27/18945 Last Action: New Order on 11/27/18945 by VANNA CHRISTIAN, [facility] Discontinued Medications Acetaminophen (Tylenol) 325 Mg Tablet, 2.5 TAB PO PRN Q4HRS for mild pain, #30 (Reported) Discontinued Reason: CHANGE Entered as Reported by: MARY STERN on 11/27/18747 Last Action: Discontinued on 11/27/181000 by VANNA CHRISTIAN RP Clotrimazole/Betamethasone Dip (Lotrisone Cream) 15 Gm Cream..g., 1 NENITA TP BID for facial rash, #15 (Reported) Discontinued Reason: NOT TAKING Entered as Reported by: ELENA VALDEZ on 04/09/18731 Last Action: Discontinued on 11/27/181000 by VANNA CHRISTIAN RP Guaifenesin (Mucinex) 600 Mg Tablet.er, 600 MG PO PRN Q12HR PRN for COUGH, (Reported) Discontinued Reason: NOT TAKNG Entered as Reported by: ELENA VALDEZ on 04/09/18731 Last Action: Discontinued on 11/27/181000 by VANNA CHRISTIAN RP Hydrocodone/Apap 5-325 ([place] 5-325 Tablet) 1 Each Tablet, 1 TAB PO PRN Q4HRS PRN for PAIN, Ref 0 (Reported) Discontinued Reason: PERCOCET Entered as Reported by: ELENA VALDEZ on 04/09/18731 Last Action: Discontinued on 11/27/181000 by VANNA CHRISTIAN, [facility] Lactulose (Lactulose) 20 Gm/30 Ml Solution, 10 GM PO DAILY, (Reported) Discontinued Reason: CHANGE Entered as Reported by: ELENA VALDEZ on 04/09/18723 Last Action: Discontinued on 11/27/181000 by VANNA CHRISTIAN, [facility] Levetiracetam (Keppra) 500 Mg Tablet, 1 TAB PO BID, #180 Ref 3 (Reported) Discontinued Reason: NOT TAKING Entered as Reported by: KENYETTA MITCHELL on 11/22/142110 Last Action: Discontinued on 11/27/181000 by VANNA CHRISTIAN, [facility] Melatonin/Pyridoxine Hcl (B6) (Melatonin 5 Mg Tablet) 1 Each Tablet, 2 EACH PO HS for insomnia, (Reported) Discontinued Reason: CORONEL Entered as Reported by: MARY STERN on 11/27/18747 Last Action: Discontinued on 11/27/18945 by VANNA CHRISTIAN, [facility] Ondansetron Hcl (Zofran) 4 Mg Tablet, 1 TAB PO PRN Q6-8HRS, #5 (Reported) Discontinued Reason: NOT TAKING Entered as Reported by: ELENA VALDEZ on 04/09/18 0732 Last Action: Discontinued on 11/27/18 1001 by VANNA CHRISTIAN R[facility] Warfarin Sodium (Coumadin) 4 Mg Tablet, 1 TAB PO DAILY, #30 Ref 3 (Reported) Discontinued Reason: Prescription changed Entered as Reported by: ELENA VALDEZ on 04/09/18 0720 NAIDA ANDERS MD November 28, 2018 10:44
[2018-11-28 11:00] VITALS: BP 114/70
[2018-11-28 15:00] VITALS: BP 119/75
--- NOTE | 2018-11-28 15:17 | NUR ---
SW following. Discussed with RN, pt is ready to discharge back to [facility] (ph: [phone], fax: [phone]). [facility] will hand picker pt between [phone]. RN notified.
[2018-11-28] MEDS ORDERED: WARFARIN 3 MG TABLET. PO ONE (16:00)
--- NOTE | 2018-11-28 16:15 | NUR ---
Discharge Note: ANALI NEWELL [facility] Discharge instructions and discharge home medications reviewed with Patient and a copy given. All questions have been answered and understanding verbalized. Discontinued lines and drains: Peripheral IV intact. Patient discharged to extermination inspector care via Wheelchair transported by [facility] transportation.
== END 2018-11-28 16:15 | disposition home or self-care (01) | DRG 871 ==
LOC: ER 01:32 → 6 SOUTH 04:10
PROVIDERS: ADMIT Internal Medicine; ATTEND Internal Medicine
DX: A41.9 Sepsis, unspecified organism (principal); J18.9 Pneumonia, unspecified organism; J44.0 Chronic obstructive pulmonary disease with (acute) lower respiratory infection; Z66 Do not resuscitate; Y95 Nosocomial condition; I10 Essential (primary) hypertension; Z95.2 Presence of prosthetic heart valve; Z86.73 Personal history of transient ischemic attack (TIA), and cerebral infarction without residual deficits; Z90.49 Acquired absence of other specified parts of digestive tract; Z95.1 Presence of aortocoronary bypass graft; Z89.512 Acquired absence of left leg below knee; Z79.899 Other long term (current) drug therapy; Z79.01 Long term (current) use of anticoagulants; Z79.51 Long term (current) use of inhaled steroids; Z88.8 Allergy status to other drugs, medicaments and biological substances; Z89.511 Acquired absence of right leg below knee
CPT/HCPCS: 36415; 71045; 80053; 80202; 81001; 82565; 83605; 83880; 84145; 84484; 85025; 85610; 85651; 87040; 93005; 94640; 96361; 96365; 96368; J2543; J3370; J7030; J7040; J7613; J7620; J7626; 99285-25